=== PATIENT | male | born 1970 | race Caucasian/White ===

== ENCOUNTER 2019-11-16 23:26 | Inpatient (IN) | payer OTHER, SELFPAY ==
--- NOTE | ~2019-11-16 | XR_ITS ---
EXAMINATION: XR chest 1V portable DATE: 11/20/2019 05:45 INDICATION: Respiratory failure TECHNIQUE: frontal view of the chest was obtained. COMPARISON: Chest radiograph dated 11/19/2019 FINDINGS: Endotracheal tube tip 2.8 cm above the cari. Nasogastric tube extends below the left hemidiaphragm with distal tip collimated off the study. Increasing opacities with air bronchograms in the right lower lung zone and increasing retrocardiac c onsolidation at the left lower lung zone. No pleural effusion or pneumothorax. The cardiomediastinal silhouette is normal. IMPRESSION: 1. Slight increase in lung disease in the bilateral lower lung zones consistent with pneumonia or les s likely pulmonary edema and atelectasis. Reviewed, dictated and finalized at location A. IMPRESSION: 1. Slight increase in lung disease in the bilateral lower lung zones consistent with pneumonia or less likely pulmonary edema and atelectasis.
--- NOTE | ~2019-11-16 | XR_ITS ---
EXAMINATION: XR chest 1V portable INDICATION: Respiratory failure TECHNIQUE: Portable AP chest at 0507 hours COMPARISON: 11/21/2019 FINDINGS: The endotracheal and nasogastric tubes have been removed. Patchy bibasilar airspace opaciti es persist but have improved. There is no pleural effusion or pneumothorax. The cardiomediastinal becky houette is normal. IMPRESSION: 1. Persistent but improved bibasilar airspace opacities, consistent with resolving atelectasis versus pneumonia. 2. Endotracheal and nasogastric tube removal. Reviewed, dictated and finalized at location A. IMPRESSION: 1. Persistent but improved bibasilar airspace opacities, consistent with resolv ing atelectasis versus pneumonia. 2. Endotracheal and nasogastric tube removal.
--- NOTE | ~2019-11-16 | XR_ITS ---
EXAMINATION: XR chest ET placement, XR abdomen NG/feed tube insert DATE: 11/19/2019 00:18 INDICATION: Endotracheal tube and orogastric tube placement. TECHNIQUE: 1. A single frontal view of the chest was obtained. 2. Supine frontal view of the abdomen and pelvis was obtained. COMPARISON: none FINDINGS: chest: Endotracheal tube tip 3.2 cm above the cari. There are opacities in the bilateral lower lung zones . No pleural effusion or pneumothorax. The cardiomediastinal silhouette is normal. KUB: Orogastric tube tip in proximal side port in the body of the stomach. Multiple gas-filled but not fra nkly dilated loops of large and small bowel in a nonspecific bowel gas pattern. IMPRESSION: 1. Endotracheal tube and orogastric tubes in expected positions. 2. Opacities in the bilateral lower lung zones which could represent pneumonia or atelectasis. 3. Nonspecific bowel gas pattern. Reviewed, dictated and finalized at location A. IMPRESSION: 1. Endotracheal tube and orogastric tubes in expected positions. 2. Opacities in the bilateral lower lung zones which could represent pneumonia or atelectasis. 3. Nonspecific bowel gas pattern.
--- NOTE | ~2019-11-16 | US_ITS ---
US right upper quadrant DATE: 11/18/2019 10:12 INDICATION: Abnormal liver function tests TECHNIQUE: Real-time imaging of liver, pancreas, gallbladder areas COMPARISON: Real-time imaging of liver, pancreas, gallbladder areas FINDINGS: There is hepatic steatosis. No hepatic or pancreatic space-occupying mass lesion is detecte d. Normal hepatic portal venous flow direction. The common bile duct measures 2.8 mm, normal. The beltran creatic duct is mildly prominent, measuring 3.4 mm diameter. No gallstones, gallbladder wall thickening or abnormal pericholecystic fluid collection. Negative son ographic Stroud's sign. IMPRESSION: Nonspecific mild prominence of the pancreatic duct, measuring 3.4 mm. Consider MRCP or ER CP Hepatic steatosis Reviewed, dictated and finalized at Location A. Reviewed, dictated and finalized at location A. IMPRESSION: Nonspecific mild prominence of the pancreatic duct, measuring 3.4 m m. Consider MRCP or ERCP Hepatic steatosis
--- NOTE | ~2019-11-16 | XR_ITS ---
EXAMINATION: XR chest 1V portable DATE: 11/21/2019 05:43 INDICATION: Respiratory failure TECHNIQUE: frontal view of the chest was obtained. COMPARISON: Chest radiograph dated 11/20/2019 FINDINGS: Endotracheal tube tip 3.0 cm above the cari. Nasogastric tube extends below the left hemidiaphragm with distal tip collimated off the study. No interval change in opacities in the bilateral lower lung zones. No pleural effusion or pneumothora x. The cardiomediastinal silhouette is normal. IMPRESSION: 1. Unchanged opacities in the bilateral lower lung zones which could represent pneumonia and/or atele ctasis. Reviewed, dictated and finalized at location A. IMPRESSION: 1. Unchanged opacities in the bilateral lower lung zones which could represent pneumonia and/or atelectasis.
--- NOTE | ~2019-11-16 | XR_ITS ---
EXAMINATION: XR chest 1V portable DATE: 11/19/2019 06:05 INDICATION: Intubation TECHNIQUE: frontal view of the chest was obtained. COMPARISON: Chest radiograph dated 11/19/19 FINDINGS: Endotracheal tube tip 4.1 cm above the cari. Nasogastric tube tip in the body of the stomach. Focal consolidation with air bronchograms in the bilateral lower lung zones, left greater than right. No pleural effusion or pneumothorax. The cardiomediastinal silhouette is normal. IMPRESSION: 1. Lung disease in the bilateral lower lung zones or less likely pulmonary edema. Reviewed, dictated and finalized at location A. IMPRESSION: 1. Lung disease in the bilateral lower lung zones or less likely pulmonary angel a.
--- NOTE | ~2019-11-16 | CT_ITS ---
EXAMINATION: CT brain wo con DATE: 11/17/2019 01:34 INDICATION: Seizure. Transient alteration of awareness. Hypertension. TECHNIQUE: Computed tomography (CT) of the head was performed without intravenous contrast. The mA wa s adjusted according to patient size. Iterative reconstruction technique was employed. Exam dose: 60 5.33 mGy-cm total exam DLP. COMPARISON: None FINDINGS: No intracranial mass lesion or hemorrhage or evidence of cerebrovascular accident. No midli ne shift or mass effect. There is nonspecific diminished attenuation of the cerebral white matter, li anat due to chronic small vessel ischemic change. There is generalized volume loss of the cerebellum and cerebral hemispheres, greater than expected for age. No subdural or epidural hematoma. No fracture or bone destruction of the cranial vault. Included paranasal sinuses and mastoid air cell s are unremarkable. IMPRESSION: Generalized volume loss of the cerebrum and cerebellum for age Nonspecific diminished attenuation cerebral white matter, likely related to chronic small vessel isch emic changes No acute intracranial finding Reviewed, dictated and finalized at Location A. Reviewed, dictated and finalized at location A. IMPRESSION: Generalized volume loss of the cerebrum and cerebellum for age Nonspecific diminished attenuation cerebral white matter, likely related to chr onic small vessel ischemic changes No acute intracranial finding
--- NOTE | ~2019-11-16 | XR_ITS ---
EXAMINATION: XR abdomen/kub 1V DATE: 11/21/2019 09:58 INDICATION: Ileus TECHNIQUE: A supine view of the abdomen on 2 radiographs was obtained. COMPARISON: None. FINDINGS: Nasogastric tube tip in the proximal body of the stomach with small amount of gas in the distal stoma ch. Moderate amount of stool in the cecum and gas extending across the transverse colon. No dilated g as-filled loops of bowel to suggest obstruction. No suspicious calcifications in the abdomen or pelvi s. IMPRESSION: 1. Normal bowel gas pattern. Reviewed, dictated and finalized at location A.
[2019-11-16 23:26] VITALS: BP 174/116; PULSE 120; RESP 20; TEMP 36.2; O2SAT 95
--- NOTE | 2019-11-16 23:32 | PC.NURSE ---
Patient's girlfriend in room, states patient has been detoxing for a week. Girlfriend states, but he's been drinking the whole time.
--- NOTE | 2019-11-16 23:34 | PC.NURSE ---
Seizure pads placed on bed, MD notified of patient.
--- NOTE | 2019-11-16 23:42 | ECG_ITS ---
Measurements Intervals [place] Rate: 114 P: 28 MA: 185 QRS: 43 QRSD: 105 T: -15 QT: 321 QTc: 444 Interpretive Statements SINUS TACHYCARDIA DELAYED PRECORDIAL R/S TRANSITION INFERIOR INFARCT, AGE INDETERMINATE BASELINE WANDER- I, AVF ABNORMAL ECG Electronically Signed On 11-17-2019 7:15:03 CDT by Francisco Javier Hogue D.O.
--- NOTE | 2019-11-16 23:54 | PC.NURSE ---
Patient pulled out IV, new IV placed.
[2019-11-17] VITALS (15 sets, daily range): BP systolic 128–159; BP diastolic 77–116; PULSE 89–106; RESP 16–95; TEMP 36.5–37.2; O2SAT 28–99; BMI 28.3
[2019-11-17 00:22] LABS: Albumin Level 5.1 g/dL (3.5-5.1); Alkaline Phosphatase 260 U/L (38-126); Aspartate Amino Transferase 546 U/L (17-59); Blood Urea Nitrogen 12 mg/dL (9-20); Calcium 10.1 mg/dL (8.4-10.2); Carbon Dioxide 20 mmol/L (22-30); Chloride 95 mmol/L (98-107); Estimated CRCL calculation 131 ml/min; Estimated Glomerular Filt Rate > 60; Glucose 208 mg/dL (75-110); Lipase 262 U/L (23-300); Potassium 3.7 mmol/L (3.4-5.0); Sodium 135 mmol/L (137-145)
[2019-11-17 00:28] LABS: Alanine Aminotransferase 217 U/L (4-50)
[2019-11-17 00:31] LABS: Basophils Percent Auto 0.4 % (0.2-1.2); Hematocrit 46.6 % (42.0-52.0); Hemoglobin 15.9 g/dL (14.0-18.0); Immature Granulocyte Absolute 0.05 K/mm3 (0.00-0.031); Immature Granulocyte Percent A 1.1 % (0-0.5); Immature Platelet Fraction Pct 8.9 % (0.9-11.2); Lymphocytes Absolute Auto 0.26 K/mm3 (0.9-3.2); Lymphocytes Percent Auto 5.8 % (18.3-44.2); Mean Corpuscular HGB Conc 34.1 g/dl (32-36); Mean Corpuscular Hemoglobin 34.5 pg (26-34); Mean Corpuscular Volume 101.1 fl (80-100); Mean Platelet Volume 12.2 fl (7.4-10.4); Monocytes Absolute Auto 0.5 K/mm3 (0.1-0.6); Monocytes Percent Auto 11.3 % (2.6-8.5); Neutrophils Absolute Auto 3.7 K/mm3 (1.3-6.7); Neutrophils Percent Auto 81.4 % (45.5-73.1); Platelet Count Result 42 k/mm3 (150-375); Red Blood Count 4.61 M/mm3 (4.6-6.20); Red Cell Distribution Width 17.4 % (11.5-14.5); White Blood Count 4.5 K/mm3 (4.5-10.0)
[2019-11-17 00:31] LABS: Ethanol < 10 mg/dL (<10)
[2019-11-17 00:34] LABS: INR 1.1; Prothrombin Time 13.6 Seconds (11.1-14.7)
[2019-11-17 00:35] LABS: Partial Thromboplastin Time 36.1 SECONDS (22.3-36.8)
[2019-11-17 00:35] LABS: Add Urine Microscopic? YES; Amphetamine Screen Urine Negative (Negative); Appearance Urine Clear (Clear); Barbiturate Screen Urine Negative (Negative); Benzodiazepines Screen Urine Negative (Negative); Bilirubin Urine 1+ (Negative); Blood Urine 2+ (Negative); Cannabinoid Screen Urine Negative (Negative); Cocaine Screen Urine Negative (Negative); Color Urine Amber (Yellow); Glucose Urine UA 1+ mg/dL (Negative); Ketones Urine 2+ mg/dL (Negative); Leukocyte Esterase Ur Negative LEU/UL (Negative); Methadone Screen Urine Negative (Negative); Mucus Urine Rare /lpf; Nitrate Urine Negative (Negative); Opiate Screen Urine Negative (Negative); Phencyclidine Screen Urine Negative (Negative); Protein Urine 3+ mg/dL (Negative); Specific Grav Ur 1.025 (1.001-1.035); WBC Urine 0-3 /hpf
[2019-11-17 00:47] LABS: Platelet Estimate Decreased (Adequate); Stomatocytes 1+ (NORMAL)
[2019-11-17 00:48] LABS: Macrocytosis 1+ (NORMAL); Ovalocytes 1+ (NORMAL)
[2019-11-17] MEDS: LORAZEPAM INJ 2 MG/ML VIAL IV PUSH ×7 (01:25→23:17)
--- NOTE | 2019-11-17 01:26 | ED.GENADULT ---
HPI - General Adult General Chief complaint: Alcohol Stated complaint: HTN Time Seen by Provider: 11/16/19 23:47 Source: patient, EMS and other (girlfriend) Mode of arrival: EMS History of Present Illness HPI narrative: 49 yo male with h/o liver disease, alcoholism who presents for evaluation of possible alcohol withdrawal. Patient states that he has been trying to stop drinking alcohol because he binges. He reports he has not had any alcohol in 1 week but his significant other states patient has likely been drinking up until 48 hours ago. EMS was called because his roommate found him altered and staring. It is suspected that patient had a seizure. He reports history of alcohol withdrawal with shakiness but he has never suffered a seizure before. He has tongue bruising but denies urinary incontinence. He denies headache , dizziness, chest pain abdominal pain or weakness. He has some mild nausea. He also denies hallucinations. He states over 1 year ago he was told he had liver disease but he does not follow up for after care Related Data Allergies Allergy/AdvReac Type Severity Reaction Status Date / Time No Known Allergies Allergy Verified 11/17/19 01:23 Review of Systems Review of Systems: All systems reviewed & are unremarkable except as noted in HPI and below Constitutional: Constitutional: Denies chills and Denies fever(s) Eyes: Eyes: Denies change in vision ENT: Denies dizziness and Denies sore throat Cardiovascular: Cardiovascular: Denies chest pain and Denies rapid heart rate Respiratory: Respiratory: Denies cough and Denies dyspnea Gastrointestinal: Gastrointestinal: Denies abdominal pain, Denies diarrhea, Reports nausea and Denies vomiting Neurologic: Denies vertigo, Denies dizziness, Denies syncope, Denies focal weakness and Denies weakness PMF Past Medical History Medical History (Updated 11/17/19 @ 03:44 by Rose Sandoval MD) Alcoholism /alcohol abuse Liver disease due to alcohol Family History Family History (Updated 11/17/19 @ 06:05 by Ashley Olmstead RN) Mother Unknown family medical history Father Unknown family medical history Sibling Unknown family medical history Social History Social History (Updated 11/17/19 @ 01:41 by Rose Sandoval MD) Smoking packs per day: 1 Smoking cigarettes per day: 20.0 Years smoked: 27 Smoking pack-years: 27.00 Smoking status: Current every day smoker Tobacco type: cigarettes Alcohol intake: current Drinks per week: 4 Substance use: never Gender identity (if verbalized by the patient): Male Spiritual care concerns: No Agree to blood products: Yes Exam Const: General: alert and ill appearing Orientation/consciousness: patient oriented x3 HENMT: Head: normocephalic and atraumatic Ears: hearing grossly normal bilaterally and external ears normal Face and sinus: face symmetric Mouth: Yes other (bruising to right side of tongue) Teeth and gingiva: dentition normal Throat: posterior oropharynx normal and tonsils normal Eyes: Pupils: Equal, round and reactive pupils present EOM: EOMs intact bilaterally Other: scleral icteric Chest: Chest palpation & inspection: normal inspection of the chest Resp: Effort & Inspection: normal respiratory effort, no retractions and no use of accessory muscles Auscultation: clear to auscultation bilaterally Cardio: Rate: tachycardic Rhythm: regular rhythm Heart sounds: no murmurs Skin: General skin exam: normal color Rashes: no rashes Neuro: General: patient oriented x3, moves all extremities and no meningeal signs Motor exam (neuro): Tremors during motor activity present Psych: Appearance: disheveled Course Consultations Consultation #1: I Discussed case with Dr. Small who accepts patient IMU with q 4 hour 50 mg librium and ativan PRN Date: 11/17/19 Time: 03:40 Vital Signs Vital signs: Vital Signs Temperature 97.1 F L 11/16/19 23:26 Pulse Rate
[2019-11-17 02:18] LABS: Ammonia 39 umol/L (9-30)
[2019-11-17 02:22] LABS: INR 1.1
[2019-11-17 02:23] LABS: Partial Thromboplastin Time 36.2 SECONDS (22.3-36.8)
[2019-11-17 02:24] LABS: Ethanol < 10 mg/dL (<10)
[2019-11-17] MEDS: LORAZEPAM INJ 2 MG/ML VIAL 1 MG IV PUSH (03:47)
--- NOTE | 2019-11-17 05:34 | ADMGEN ---
This patient, Manny Morley, was admitted to IMU Room 205-01 FROM ER 11/17/19 0450. Patient/family oriented to hospital policies and general routines including ID bracelet, bed and alarms, visiting hours, pain management, procedures, bathroom and other care routines, personal items, smoking policy, room service/diet, and visiting hours. Valuables list has been completed. Information on how to activate the Rapid Response Team has been discussed. Patient/Family are encouraged to report perceived risks to care and to ask questions if they do not understand what they are told or what they should do.
[2019-11-17] MEDS: CHLORDIAZEPOXIDE 25 MG CAPSULE 50 MG PO ×4 (06:51→23:17)
--- NOTE | 2019-11-17 09:42 | PM.IMHP ---
H&P: HPI History of Present Illness Chief complaint: alcohol withdrawal, alcoholic seizure Narrative: Manny Morley is a 49 year old male who has experienced problems with alcohol abuse since his early 20s. He admits to a couple of DUIs during his 20s. A little over 1 year ago he was in inpatient and outpatient rehab at [facility] in [place], [place]. He was given a prescription for naltrexone but did not take it. He did well for several months but relapsed to his previous binge drinking pattern. He would drink 1 pt of hard liquor per day for 3-4 days in abstain for a couple of days until he got the shakes and then start drinking again. He has had withdrawal in the past with hallucinations. But he has never had seizures. He was in 1 of his binges until he stopped drinking about 4 days prior to admission. A significant other who accompanied him to the emergency department related to the doctor there that he might have been drinking up to 48 hours prior to admission. He was brought the emergency department because his roommate found him confused and staring. There was some bruising on his tongue but no other sign of injury and no incontinence of urine or stool. The presumption was that he might have had a seizure. In the emergency department he was given lorazepam and Librium. This morning he feels a bit shaky. However he is not nauseated nor is he confused. He denied pain in the chest, back, abdomen, or extremities. Denied shortness of breath. Denied bowel or bladder changes. Denied abnormal bleeding. Denied weakness numbness visual or hearing changes. Denied rash or itching. Review of Systems Review of Systems: Narrative: Intermittent random nausea while drinking. No heartburn. All systems reviewed & are unremarkable except as noted in HPI and below PMFSH Past Medical History Medical History Alcoholism /alcohol abuse Liver disease due to alcohol Surgical History Surgical History (Updated 11/17/19 @ 09:45 by Moises Keyes MD) S/P ACL repair Left knee in about 2014 Family History Family History (Updated 11/17/19 @ 09:46 by Moises Keyes MD) Mother Alcoholism Father Alcohol abuse Sibling Alcoholism Social History Social History (Updated 11/17/19 @ 09:48 by Moises Keyes MD) Smoking packs per day: 1 Smoking cigarettes per day: 20.0 Years smoked: 27 Smoking pack-years: 27.00 Smoking status: Current every day smoker Tobacco type: cigarettes Alcohol intake: current Drinks per week: 4 Alcohol use details: Binges one pint of hard liquor per day for 3-4 days at a time Substance use: never Living arrangements: with friend(s) Additional living arrangements comments: Lives with roommate Occupation/Education: occupation Additional occupation/education comments: manager equity Gender identity (if verbalized by the patient): Male Spiritual care concerns: No Agree to blood products: Yes Meds Home Medications and Allergies Allergies Allergy/AdvReac Type Severity Reaction Status Date / Time No Known Allergies Allergy Verified 11/17/19 01:23 Vital Signs Vital Signs - 24 hr 11/16/19 23:26 11/17/19 02:17 11/17/19 04:00 Temperature 97.1 F L 98.5 F Pulse Rate 120 H 89 93 Pulse Rate [Monitor] Respiratory Rate 20 95 H 16 Blood Pressure 174/116 H 156/116 H 149/89 H Pulse Oximetry 95 28 L 93 11/17/19 04:40 11/17/19 05:00 11/17/19 08:00 Temperature 98.8 F Pulse Rate 89 99 Pulse Rate [Monitor] 90 Respiratory Rate 18 18 Blood Pressure 134/94 H 149/89 H 148/91 H Pulse Oximetry 98 95 Exam Narrative: Exam Narrative: HEENT: EOMI, PERRL, sclerae nonicteric, pharyngeal mucosa pink and intact NECK: No JVD, adenopathy, or thyromegaly CHEST: Clear to auscultation. Normal effort. HEART: NL S1/S2, regular, no murmur ABDOMEN: BS+, soft, nontender, no mass, no bruits EXTREMITIES: No c
[2019-11-17] MEDS: LACTATED RINGERS 1,000 ML 125 ML IV CONT ×2 (13:03→20:00)
[2019-11-17] MEDS: hydrALAZINE HCL 20 MG/ML VIAL 10 MG IV PUSH (19:55)
[2019-11-18] VITALS (14 sets, daily range): BP systolic 101–168; BP diastolic 66–107; PULSE 67–148; RESP 14–35; TEMP 36.2–37.4; O2SAT 91–99
[2019-11-18] MEDS: NICOTINE (*PBKC) 21 MG PATCH 1 PATCH TRANSDERM ×2 (01:32→09:38)
[2019-11-18] MEDS: CHLORDIAZEPOXIDE 25 MG CAPSULE 100 MG PO ×4 (01:53→23:19)
[2019-11-18] MEDS: LORAZEPAM INJ 2 MG/ML VIAL 4 MG IV PUSH ×3 (01:54→22:19)
--- NOTE | 2019-11-18 02:45 | P.PNCROSS_ITS ---
Event Note Event Note Event Note: A code simón was called. I arrived at the bedside shortly thereafter. The patient was trying to climb out of bed. The patient had been admitted for alcohol withdrawal. He was already on Librium 50 mg q.6 hours. I had been called earlier in the evening because the patient's CIWA score was 18. Evidently the patient's CIWA score had been in the teens throughout most of course the day. I have given an order at that time for 4 mg of Ativan IV push and a 100 mg Librium order x1 now and to change his scheduled Librium to 100 mg Q 6. His Ativan was also changed to 2 mg Q 2 hours. However approximately an hour later the patient was quite agitated, hallucinating, diaphoretic, and markedly tremulous. I ordered 4 mg of Ativan IV push and Haldol 10 mg IM. The patient did not seem to settle down at all and may be even got a little bit worse. Another order for 6 mg of IV Ativan push and Zyprexa 10 mg IM. And shortly thereafter the patient was still agitated. Additional 6 mg of Ativan IV push was given as the patient was prepared for transfer to the ICU as his CIWA score was 36 despite large doses of Ativan and antipsychotics. I ordered a Precedex bolus and Precedex drip. Given the patient's hallucinations and altered mental status I was concern for the patient's risk of aspiration. The patient has subsequently been made NPO. Alcoholism with delirium tremens-the patient's case has been discussed with the breakfast attendant. Care has been turned over to the breakfast attendant at the end of my shift. 75 minutes was spent in critical care activities. This case had a high probability of a clinically significant, sudden, or life threatening deterioration of this patient's condition which required my full and direct attention, intervention and personal management.
[2019-11-18] MEDS: HALOPERIDOL LACTATE 5 MG/ML VIAL 10 MG IM (02:49)
[2019-11-18] MEDS: LORAZEPAM INJ 2 MG/ML VIAL 6 MG IV PUSH ×2 (02:51→23:53)
[2019-11-18] MEDS: OLANZapine 10 MG INJ VIAL IM (02:51)
[2019-11-18] MEDS: WATER, STERILE FOR INJECTION 10 ML VIAL XX (02:53)
--- NOTE | 2019-11-18 03:04 | PC.NURSE ---
PT. VERY AGITATED 0130 AND UNRULY, COMBATIVE. DR. RICHARDSON NOTIFIED OF PT WITHDRAWAL AND AGITATION. ORDERS RECEIVED. 0140 PT. FELL OUT OF BED DEBRA HERE. 0214 CODE PURPLE CALLED DUE TO SEVERE AGITATION. SEE NOTES AND EMAR FOR MEDS.. AT BEDSIDE.
--- NOTE | 2019-11-18 03:45 | PC.NURSE ---
This patient, Manny Morley, was transferred to ICU-10 on 11/18/19 at 0320. Personal belongings sent with patient. Belongings list checked and signed with receiving [ ]. Report given to HARSHIL CASTILLO [ ]. Appropriate documentation sent with patient.
--- NOTE | 2019-11-18 03:47 | PC.NURSE ---
MOTHER SONIA NOTIFIED OF FALL AND TRANSFER TO ICU DUE TO SEVERE WITHDRAWAL SX. AND NEED FOR CRITICAL CARE IV MEDICATION.
[2019-11-18] MEDS: SODIUM CHLORIDE 0.9% IV 1,000 ML 125 ML IV CONT ×3 (04:03→19:18)
[2019-11-18] MEDS: LORAZEPAM INJ 2 MG/ML VIAL 4 MG ×2 (07:55→14:02)
[2019-11-18] MEDS: HALOPERIDOL LACTATE 5 MG/ML VIAL (07:56)
[2019-11-18 09:16] LABS: Basophils Percent Auto 0.4 % (0.2-1.2); Eosinophils Absolute Auto 0.1 K/mm3 (0-0.3); Eosinophils Percent Auto 1.7 % (0-4.4); Hematocrit 39.3 % (42.0-52.0); Hemoglobin 13.4 g/dL (14.0-18.0); Immature Granulocyte Absolute 0.03 K/mm3 (0.00-0.031); Immature Granulocyte Percent A 0.6 % (0-0.5); Lymphocytes Absolute Auto 0.26 K/mm3 (0.9-3.2); Lymphocytes Percent Auto 5.5 % (18.3-44.2); Mean Corpuscular HGB Conc 34.1 g/dl (32-36); Mean Corpuscular Hemoglobin 35.1 pg (26-34); Mean Corpuscular Volume 102.9 fl (80-100); Mean Platelet Volume 12.1 fl (7.4-10.4); Monocytes Absolute Auto 0.3 K/mm3 (0.1-0.6); Monocytes Percent Auto 6.6 % (2.6-8.5); Neutrophils Percent Auto 85.2 % (45.5-73.1); Platelet Count Result 43 k/mm3 (150-375); Red Blood Count 3.82 M/mm3 (4.6-6.20); Red Cell Distribution Width 17.3 % (11.5-14.5); White Blood Count 4.7 K/mm3 (4.5-10.0)
[2019-11-18 09:24] LABS: Ammonia 23 umol/L (9-30)
[2019-11-18 09:29] LABS: Magnesium 1.9 mg/dL (1.6-2.3); Phosphorus 3.2 mg/dL (2.5-4.5)
[2019-11-18 09:30] LABS: Alanine Aminotransferase 198 U/L (4-50); Alkaline Phosphatase 178 U/L (38-126); Aspartate Amino Transferase 370 U/L (17-59); Bilirubin,Total 6.2 mg/dL (0.2-1.3); Blood Urea Nitrogen 9 mg/dL (9-20); Calcium 8.9 mg/dL (8.4-10.2); Carbon Dioxide 23 mmol/L (22-30); Chloride 103 mmol/L (98-107); Estimated CRCL calculation 150 ml/min; Estimated Glomerular Filt Rate > 60; Glucose 138 mg/dL (75-110); Potassium 3.3 mmol/L (3.4-5.0); Sodium 138 mmol/L (137-145)
[2019-11-18 09:37] LABS: Creatine Kinase 388 U/L (55-170)
[2019-11-18 10:24] LABS: Hepatitis B Surface Antigen Negative (Negative)
[2019-11-18 10:27] LABS: HAV RESULT Negative (Negative); Hepatitis B Core IgM Result Negative (Negative)
[2019-11-18 10:39] LABS: Hepatitis C Virus Antibody Negative (Negative)
--- NOTE | 2019-11-18 12:43 | WPDCNINT ---
Assessment and Plan Assessment and plan (1) Alcohol withdrawal syndrome: Qualifiers: Complication of substance-induced condition: with unspecified complication Qualified Code(s): F10.239 - Alcohol dependence with withdrawal, unspecified Code(s): F10.239 - Alcohol dependence with withdrawal, unspecified Status: Acute Assessment and Plan: Alcohol withdrawal, with possible seizures, tremors, delirium, agitation. - started on precedex - pt has received multiple doses of ativan, haldol and zyprexa. - continue thiamine, folic acid and MVI - Libriium - ativan PRN (2) Alcohol withdrawal seizure: Qualifiers: Complication of substance-induced condition: with unspecified complication Qualified Code(s): F10.239 - Alcohol dependence with withdrawal, unspecified; R56.9 - Unspecified convulsions Code(s): F10.239 - Alcohol dependence with withdrawal, unspecified; R56.9 - Unspecified convulsions Status: Acute Assessment and Plan: Ativan PRN and Preedex (3) Acute alcoholic hepatitis: Code(s): K70.10 - Alcoholic hepatitis without ascites Status: Acute (4) DVT prophylaxis: Code(s): Z29.9 - Encounter for prophylactic measures, unspecified Status: Acute Assessment and Plan: SCDs, No chemoprophylaxis due to thrombocytopenia (5) Thrombocytopenia: Code(s): D69.6 - Thrombocytopenia, unspecified Status: Acute Assessment and Plan: likely secondary ETOH abuse. continue to monitor (6) Elevated LFTs: Code(s): R79.89 - Other specified abnormal findings of blood chemistry Status: Acute Assessment and Plan: RUQ u/s 11/17: Nonspecific mild prominence of the pancreatic duct, measuring 3.4 mm. Consider MRCP or ERCP. Hepatic steatosis - Will have GI evaluate the pt Additional Plan WIll update his mother. Code Status: Full code Critical care time spent: 41 minutes Due to a high probability of clinically significant, life threatening deterioration, the patient required my highest level of preparedness to intervene emergently and I personally spent this critical care time directly and personally managing the patient. This critical care time included obtaining a history; examining the patient; pulse oximetry; ordering and review of studies; arranging urgent treatment with development of a management plan; evaluation of patient's response to treatment; frequent reassessment; and discussions with other providers. It was exclusive of separately billable procedures and treating other patients and teaching time. Please see Assessment and Plan section and the rest of the note for further information on patient assessment and treatment [employer] Liaison Adviser Consult Note Consult date: 11/18/19 Time Seen: 07:01 Reason for consult: Alcohol Withdrawal with delirium and agitation HPI: Manny Morley is a 49 year old male with PMH of Alcoholism/alcohol abuse and alcohol withdrawal, liver disease due to alcohol presented to the ED on 11/17/2019 with withdrawal seizures, hallucinations, tremors. Pt stopped drinking 48 hrs prior to arrival to the ED. Off note he has been in in patient and out patient rehab. He started binge drinking and stated to the hospitalistthat he drinks 1 pint of hard liquor per da for 3-4 days and then abstains for couple of days and when he gets his shakes her starts drinking agaihn, Pt wa son the IMU and was agitated and delirious and received a total of 16 mg of ativan along with zyprexa and haldol and the was transferred to ICU for Precedex infusion. Pt seen and examined in the ICU this morning. Pt was agitated and was climbing out of the bed and was given haldol and ativan and increased his precedex infusion. Pt settled down. Adequate uo, remains on maintenance IV fluids. Hemodynamically stable. Unable to anser any questions as pt is delirious. Review of Systems Review of Systems: ROS unobtainable: Yes unobtainable due to men
--- NOTE | 2019-11-18 17:54 | PM.IMPN ---
Progress Note: A&P Assessment and Plan (1) Alcohol withdrawal syndrome: Qualifiers: Complication of substance-induced condition: with unspecified complication Qualified Code(s): F10.239 - Alcohol dependence with withdrawal, unspecified Code(s): F10.239 - Alcohol dependence with withdrawal, unspecified Status: Acute Assessment and Plan: With confusion and possible seizure with postictal state No seizure altered mental status since admission Continue schedule Librium 50 mg every 6 hours Continue lorazepam 1 mg IV q.4 hours p.r.n. based on CIWA scale Continue thiamine and multivitamins Sedated and may need rehab type program later if he agrees to (2) Alcohol withdrawal seizure: Qualifiers: Complication of substance-induced condition: with unspecified complication Qualified Code(s): F10.239 - Alcohol dependence with withdrawal, unspecified; R56.9 - Unspecified convulsions Code(s): F10.239 - Alcohol dependence with withdrawal, unspecified; R56.9 - Unspecified convulsions Status: Acute Assessment and Plan: Seizure precautions Treat alcohol withdrawal as above now on Precedex also (3) Acute alcoholic hepatitis: Code(s): K70.10 - Alcoholic hepatitis without ascites Status: Acute Assessment and Plan: Screen for viral hepatitis is negative Ultrasound right upper quadrant normal Discussed abstaining from alcohol Subjective Date/time seen: 11/18/19 17:54 Interval history: Date of visit 11/17. 49-year-old high a holiday admitted with withdrawal her now in ICU with Precedex and benzodiazepine as as needed for agitation and DT symptoms Exam Narrative: Exam Narrative: Blood pressure 144/96 pulse 72 afebrile HEENT: , PERRL, sclerae nonicteric, NECK: No JVD, adenopathy, or thyromegaly CHEST: Clear to auscultation. Normal effort. HEART: NL S1/S2, regular, no murmur ABDOMEN: BS+, soft, nontender, no mass, no bruits EXTREMITIES: No , edema, NEUROLOGIC: CN intact and symmetric to inspection. No focal deficits detected but heavily sedated MUSCULOSKELETAL: . PSYCH: Heavily sedated unable to evaluate. Objective Data Vital Signs Vital Signs: Vital Signs - 24 hr 11/17/19 18:00 11/17/19 19:34 11/17/19 20:00 Temperature 36.5 C Pulse Rate 102 H 98 104 H Pulse Rate [Bilateral Pedal (Dorsalis Pedis)] Pulse Rate [Monitor] Respiratory Rate 20 Blood Pressure 159/103 H 159/103 H Pulse Oximetry 99 11/17/19 21:12 11/17/19 21:57 11/17/19 23:50 Temperature 37.0 C 37.2 C Pulse Rate 103 H 99 106 H Pulse Rate [Bilateral Pedal (Dorsalis Pedis)] Pulse Rate [Monitor] 106 H Respiratory Rate 18 18 Blood Pressure 128/77 136/96 H Pulse Oximetry 99 97 11/18/19 02:00 11/18/19 02:31 11/18/19 02:54 Temperature 36.2 C L Pulse Rate 130 H 120 H Pulse Rate [Bilateral Pedal (Dorsalis Pedis)] 148 H Pulse Rate [Monitor] Respiratory Rate 20 Blood Pressure 152/92 H Pulse Oximetry 97 11/18/19 04:00 11/18/19 06:00 11/18/19 08:00 Temperature 37.4 C 36.6 C 36.9 C Pulse Rate 122 H 79 83 Pulse Rate [Bilateral Pedal (Dorsalis Pedis)] 122 H Pulse Rate [Monitor] 122 H Respiratory Rate 20 33 H 28 H Blood Pressure 138/79 107/70 133/103 H Pulse Oximetry 99 98 98 11/18/19 09:46 11/18/19 10:00 11/18/19 12:00 Temperature 36.9 C Pulse Rate 73 76 Pulse Rate [Bilateral Pedal (Dorsalis Pedis)] Pulse Rate [Monitor] Respiratory Rate 14 28 H Blood Pressure 144/96 H 127/92 H Pulse Oximetry 96 98 93 11/18/19 14:00 11/18/19 16:00 Temperature 37.0 C Pulse Rate 68 71 Pulse Rate [Bilateral Pedal (Dorsalis Pedis)] Pulse Rate [Monitor] Respiratory Rate 18 35 H Blood Pressure 151/100 H 154/96 H Pulse Oximetry 91 95 Intake/Output Intake/Output: Intake & Output 11/15/19 11/16/19 11/17/19 11/18/19 23:59 23:59 23:59 23:59 Intake Total 2768.2 1289 Output Total 1025 1550 Balance 1743.2 -261
[2019-11-18] MEDS: LORAZEPAM INJ 2 MG/ML VIAL IV PUSH ×3 (19:17→23:20)
[2019-11-18] MEDS: HALOPERIDOL LACTATE 5 MG/ML VIAL IV PUSH (22:19)
[2019-11-19] VITALS (24 sets, daily range): BP systolic 135–164; BP diastolic 94–111; PULSE 64–88; RESP 12–97; TEMP 36.2–37.6; O2SAT 96–100; BMI 28.6
[2019-11-19] MEDS: PROPOFOL IV EMULSION 100 ML 3 MG IV CONT
--- NOTE | 2019-11-19 01:05 | P.PCNBED_ITS ---
Procedures Intubation: Intubation Date: 11/18/19 Intubation Time: 23:57 A pre- procedural Time-Out was completed immediately before starting the procedure and confirmed: Patient Identification, Site, Procedure, Patient Position and the Availability of Requisite Equipment: Yes Sedative: other (Diprivan) Mg given: 200 Laryngoscope: fiber optic video scope ET tube size: cuffed Tube secured depth (cm): 26 Tube secured location: lips Tube placement confirmation: visualized tube passing through cords, equal breath sounds bilaterally, no breath sounds over epigastrium and confirmation by capnometry Patient tolerated procedure: well Intubation complications: none Additional comments: The patient had a small amount of thick dried yellow to white mucus the posterior oropharynx with some dried brown material to his tongue. Otherwise intubation was unremarkable. The patient started to gag against the tube less than a minute after intubation. An additional 100 mg of Diprivan was administered. Chest x-ray was reviewed and ET tube as well as OG tube were in appropriate positions. Radiologic interpretation pending. When OG was placed there was a large amount of bilious material that returned.
--- NOTE | 2019-11-19 01:12 | PM.EVENT ---
Event Note Event Note Event Note: I was in the ICU evaluating another patient became aggressive and was kicking and nursing staff. The patient was already maxed out on Precedex and had received numerous doses of Ativan. He had also received IV Haldol. The patient was insensible but still agitated and shaking violently. The patient was becoming a risk to himself and to staff. Subsequently I decide intubate the patient. The patient underwent RSI without complications. He received 200 mg IV push propofol but had have an additional 100 mg immediately following intubation as he was coughing and gagging is the tube. Sedation was continued with Precedex and a propofol infusion was hung. Tidal volume of 500, peep of 5, rate of 12, FiO2 of 40%. Chest x-ray and KUB were performed to an ensure appropriate placement of ET tube and OG tube placement. Check stat x-ray and KUB were personally reviewed. Radiologic interpretation pending. The patient was rapidly maxed out on propofol. But shortly after he was maxed on a propofol the patient sedation was adequate. I did provide an order for fentanyl if needed. However at this time the patient is tolerating sedation well with propofol and and Precedex. Diagnosis: Delirium tremens 25 minutes was spent in critical care activities excluding procedures.
[2019-11-19 01:17] LABS: Alveolar/Arterial O2 Gradient 265.4 mmHg; Base Excess ABG -1.2 mEq/l (+/-2.0); Fractional Inspired Oxygen 50 %; HCO3 ABG 22.3 mEq/l (22.0-26.0); Methemoglobin ABG 0.5 %THb (0-1.5); Oxygen Content ABG 17.5 %vol (16.0-22.0); PCO2 ABG 33.7 mmHg (35.0-45.0); PO2 ABG 53.2 mmHg (80.0-100.0); PO2 FiO2 Ratio Arterial Blood 1.06 %; Reduced Hemoglobin 12.5 %THb (0-5.0); Total Hemoglobin 14.5 g/dL (12.0-18.0); pH ABG 7.438 (7.350-7.450)
[2019-11-19 01:18] LABS: Arterial Blood Gas Vent Mode CMV; Arterial Blood Gas Ventilator rate 12 /MIN; Device VENTILATOR; Modified Allen's Test Pass; Site Drawn LEFT RADIAL
[2019-11-19 01:19] LABS: Arterial Blood Gas PEEP 5 cmH2O; Arterial Blood Gas Pressure Support 0 cmH2O; Arterial Blood Gas Tidal Volume 500 ml
[2019-11-19] MEDS: PROPOFOL IV EMULSION 100 ML 30.3 MG IV CONT ×6 (02:33→23:07)
[2019-11-19] MEDS: SODIUM CHLORIDE 0.9% IV 1,000 ML 125 ML IV CONT ×2 (03:27→11:46)
[2019-11-19 04:53] LABS: Alveolar/Arterial O2 Gradient 223.2 mmHg; Base Excess ABG -0.5 mEq/l (+/-2.0); Carboxyhemoglobin 0.8 % THb (0-2.0); Device VENTILATOR; Fractional Inspired Oxygen 50 %; HCO3 ABG 23.6 mEq/l (22.0-26.0); Methemoglobin ABG 0.5 %THb (0-1.5); Modified Allen's Test Pass; Oxygen Content ABG 19.2 %vol (16.0-22.0); Oxygen Saturation ABG 97.2 % (95.0-100.0); Oxyhemoglobin 95.8 % THb (90.0-100.0); PO2 ABG 91.7 mmHg (80.0-100.0); PO2 FiO2 Ratio Arterial Blood 1.83 %; Reduced Hemoglobin 2.9 %THb (0-5.0); Site Drawn RIGHT RADIAL; Total Hemoglobin 14.2 g/dL (12.0-18.0); pH ABG 7.422 (7.350-7.450)
[2019-11-19 04:54] LABS: Arterial Blood Gas PEEP 5 cmH2O; Arterial Blood Gas Pressure Support 0 cmH2O; Arterial Blood Gas Tidal Volume 500 ml; Arterial Blood Gas Vent Mode CMV; Arterial Blood Gas Ventilator rate 12 /MIN
--- NOTE | 2019-11-19 07:45 | WPDINTPN ---
Progress Note: A&P Assessment and Plan (1) Acute respiratory failure: Code(s): J96.00 - Acute respiratory failure, unspecified whether with hypoxia or hypercapnia Status: Acute Assessment and Plan: Acute Respiratory failure secondary to delirium tremens and encephalopathy Continue full mechanical ventilation support to prevent hypoxemia/hypercarbia and end organ damage. ABG and PCXR reviewed and will repeat in am. concerns of aspiration pneumonia from chest x-ray and report of bilious section from ET tube after intubation check blood culture and sputum culture start empiric Zosyn Bronchodilators p.r.n. (2) Alcohol withdrawal syndrome: Qualifiers: Complication of substance-induced condition: with unspecified complication Qualified Code(s): F10.239 - Alcohol dependence with withdrawal, unspecified Code(s): F10.239 - Alcohol dependence with withdrawal, unspecified Status: Acute Assessment and Plan: Alcohol withdrawal, with possible seizures, tremors, delirium, agitation. - patient now sedated with propofol, precedex and fentanyl - prior to that patient received multiple doses of ativan, haldol and zyprexa. - continue thiamine, folic acid and MVI - Libriium (3) Alcohol withdrawal seizure: Qualifiers: Complication of substance-induced condition: with unspecified complication Qualified Code(s): F10.239 - Alcohol dependence with withdrawal, unspecified; R56.9 - Unspecified convulsions Code(s): F10.239 - Alcohol dependence with withdrawal, unspecified; R56.9 - Unspecified convulsions Status: Acute Assessment and Plan: at this time patient is sedated with propofol Ativan PRN when extubated (4) Acute alcoholic hepatitis: Code(s): K70.10 - Alcoholic hepatitis without ascites Status: Acute Assessment and Plan: monitor LFTs ammonia was normal lipase was normal (5) DVT prophylaxis: Code(s): Z29.9 - Encounter for prophylactic measures, unspecified Status: Acute Assessment and Plan: SCDs, No chemoprophylaxis due to thrombocytopenia (6) Thrombocytopenia: Code(s): D69.6 - Thrombocytopenia, unspecified Status: Acute Assessment and Plan: likely secondary ETOH abuse. continue to monitor improving slowly (7) Elevated LFTs: Code(s): R79.89 - Other specified abnormal findings of blood chemistry Status: Acute Assessment and Plan: RUQ u/s 4/21: Nonspecific mild prominence of the pancreatic duct, measuring 3.4 mm. Hepatic steatosis GI consulted Additional Plan DVT prophylaxis - SCDs Stress ulcer prophylaxis - add PPI Nutrition - start Tube Feeds today Code Status - Full Code Critical care time spent: 35 minutes Due to a high probability of clinically significant, life threatening deterioration, the patient required my highest level of preparedness to intervene emergently and I personally spent this critical care time directly and personally managing the patient. This critical care time included obtaining a history; examining the patient; pulse oximetry; ordering and review of studies; arranging urgent treatment with development of a management plan; evaluation of patient's response to treatment; frequent reassessment; and discussions with other providers. It was exclusive of separately billable procedures and treating other patients and teaching time. Please see Assessment and Plan section and the rest of the note for further information on patient assessment and treatment Subjective Date/time seen: 11/19/19 0745 Overnight events reviewed. Patient was intubated overnight and sedated. patient was being treated for delirium tremens and was on high dose of Precedex and was still combative aggressive and kicking. Nursing staff. Patient was restrained but was not controlled hence patient was sedated and intubated. Afebrile Vitals acceptable Interval history:
--- NOTE | 2019-11-19 07:46 | WPDGICN ---
Assessment and Plan Assessment and plan (1) Elevated LFTs: Code(s): R79.89 - Other specified abnormal findings of blood chemistry Status: Acute Assessment and Plan: Elevated LFTs most consistent with alcoholic liver disease especially with AST so much elevated compared ALT. Thrombocytopenia noted also suggested significant alcoholic liver disease. Plan is for for supportive care at the present time. LFTs should be monitored. Ultimately long-term alcohol suggested. (2) Alcohol withdrawal syndrome: Qualifiers: Complication of substance-induced condition: with unspecified complication Qualified Code(s): F10.239 - Alcohol dependence with withdrawal, unspecified Code(s): F10.239 - Alcohol dependence with withdrawal, unspecified Status: Acute Assessment and Plan: Patient with extreme agitation last evening. Appeared to have experienced DTs. Now sedated rate and required intubation. Management per medicaid business analyst service. (3) Acute alcoholic hepatitis: Code(s): K70.10 - Alcoholic hepatitis without ascites Status: Acute Assessment and Plan: Elevated LFTs likely on the basis of acute alcoholic hepatitis is uncertain if he has some component of cirrhosis. This cannot be excluded. CT scan suggest fatty liver undoubtedly on the basis of alcohol. Dilated pancreatic duct is likely nonspecific. At a later date we may want to consider MRCP to evaluate further. I would not pursue this at the present time. GI Consult Note Consult date/time: 11/19/19 07:46 HPI: Manny Morley is a 49 year old male seen in evaluation at the request of the medicaid business analyst service. Patient admitted the hospital 2 days ago with signs of alcohol withdrawal. Possible alcoholic seizure. Patient has a long history of alcohol abuse for 20 years. Typically drinks a pt of hard liquor every 3-4 days. Patient was admitted to the intensive care unit. Because of delirium tremens and extreme agitation he was given sedation and ultimately intubated last night. Currently unable to give any additional history. CT scan of the abdomen raise the question of prominence of the pancreatic duct. His liver tests are noted to be somewhat elevated. Review of Systems Review of Systems: ROS unobtainable: Yes unobtainable due to endotracheal tube PMFSH Past Medical History Medical History Alcoholism /alcohol abuse Liver disease due to alcohol Surgical History Surgical History S/P ACL repair Left knee in about 2014 Family History Family History Mother Alcoholism Father Alcohol abuse Sibling Alcoholism Social History Social History Smoking packs per day: 1 Smoking cigarettes per day: 20.0 Years smoked: 27 Smoking pack-years: 27.00 Smoking status: Current every day smoker Tobacco type: cigarettes Alcohol intake: current Drinks per week: 4 Alcohol use details: Binges one pint of hard liquor per day for 3-4 days at a time Substance use: never Living arrangements: with friend(s) Additional living arrangements comments: Lives with roommate Occupation/Education: occupation Additional occupation/education comments: solution manager Gender identity (if verbalized by the patient): Male Spiritual care concerns: No Agree to blood products: Yes Meds Home Medications and Allergies Home Medications Medication Instructions Recorded Confirmed Type No Home Medications 11/18/19 11/18/19 History Allergies Allergy/AdvReac Type Severity Reaction Status Date / Time No Known Allergies Allergy Verified 11/17/19 01:23 Vital Signs Vital Signs - 24 hr 11/18/19 08:00 11/18/19 09:46 11/18/19 10:00 Temperature 36.9 C Pulse Rate 83 73 Pulse Ra
[2019-11-19 08:39] LABS: Basophils Percent Auto 0.6 % (0.2-1.2); Eosinophils Absolute Auto 0.1 K/mm3 (0-0.3); Eosinophils Percent Auto 1.7 % (0-4.4); Hematocrit 41.5 % (42.0-52.0); Immature Granulocyte Absolute 0.04 K/mm3 (0.00-0.031); Immature Granulocyte Percent A 0.6 % (0-0.5); Immature Platelet Fraction Pct 11.4 % (0.9-11.2); Lymphocytes Absolute Auto 0.49 K/mm3 (0.9-3.2); Lymphocytes Percent Auto 6.9 % (18.3-44.2); Mean Corpuscular HGB Conc 33.7 g/dl (32-36); Mean Corpuscular Hemoglobin 35.1 pg (26-34); Mean Platelet Volume 11.6 fl (7.4-10.4); Monocytes Absolute Auto 0.7 K/mm3 (0.1-0.6); Monocytes Percent Auto 9.6 % (2.6-8.5); Neutrophils Absolute Auto 5.7 K/mm3 (1.3-6.7); Neutrophils Percent Auto 80.6 % (45.5-73.1); Platelet Count Result 54 k/mm3 (150-375); Red Blood Count 3.99 M/mm3 (4.6-6.20); Red Cell Distribution Width 17.4 % (11.5-14.5); White Blood Count 7.1 K/mm3 (4.5-10.0)
[2019-11-19 08:51] LABS: Alanine Aminotransferase 208 U/L (4-50); Albumin Level 3.8 g/dL (3.5-5.1); Alkaline Phosphatase 172 U/L (38-126); Aspartate Amino Transferase 365 U/L (17-59); Bilirubin,Total 6.6 mg/dL (0.2-1.3); Blood Urea Nitrogen 7 mg/dL (9-20); Calcium 8.7 mg/dL (8.4-10.2); Carbon Dioxide 22 mmol/L (22-30); Chloride 106 mmol/L (98-107); Estimated CRCL calculation 150 ml/min; Estimated Glomerular Filt Rate > 60; Glucose 139 mg/dL (75-110); Magnesium 1.7 mg/dL (1.6-2.3); Phosphorus 3.4 mg/dL (2.5-4.5); Sodium 137 mmol/L (137-145)
[2019-11-19] MEDS: THIAMINE HCL 100 MG TABLET PO (08:54)
[2019-11-19] MEDS: THERAPEUTIC MULTIVITAMINS/MINERALS TAB (*BKC) 1 TABLET PO (08:54)
[2019-11-19] MEDS: FOLIC ACID 1 MG TABLET PO (08:54)
[2019-11-19] MEDS: NICOTINE (*PBKC) 21 MG PATCH 1 PATCH TRANSDERM (08:54)
[2019-11-19] MEDS: PROPOFOL IV EMULSION 100 ML 12.1 MG IV CONT (09:44)
[2019-11-19] MEDS: PROPOFOL IV EMULSION 100 ML 18.2 MG IV CONT (10:48)
[2019-11-19] MEDS: CHLORDIAZEPOXIDE 25 MG CAPSULE 100 MG PO ×3 (11:08→23:35)
[2019-11-19 11:57] LABS: Glucose Point of Care 127 (65-105)
--- NOTE | 2019-11-19 13:46 | PC.NURSE ---
Pt had episode of shaking arms, eyes open and eyeballs rode back in his head, aKla Marie notified and at bed side, stated it looked to rhythmic to be seizure activity, lasted approximately 3 and a half minutes, will continue to monitor
[2019-11-19] MEDS: POTASSIUM CHLORIDE 20 MEQ PACKET (FOR LIQUID) 40 MEQ PO ×2 (14:57→19:58)
--- NOTE | 2019-11-19 16:08 | PM.IMPN ---
Progress Note: A&P Assessment and Plan (1) Alcohol withdrawal syndrome: Qualifiers: Complication of substance-induced condition: with unspecified complication Qualified Code(s): F10.239 - Alcohol dependence with withdrawal, unspecified Code(s): F10.239 - Alcohol dependence with withdrawal, unspecified Status: Acute Assessment and Plan: With confusion and possible seizure with postictal state and continue downhill course was intubated and mechanically ventilated No seizure altered mental status since admission Continue lorazepam 1 mg IV q.4 hours p.r.n. based on CIWA scale Continue thiamine and multivitamins (2) Alcohol withdrawal seizure: Qualifiers: Complication of substance-induced condition: with unspecified complication Qualified Code(s): F10.239 - Alcohol dependence with withdrawal, unspecified; R56.9 - Unspecified convulsions Code(s): F10.239 - Alcohol dependence with withdrawal, unspecified; R56.9 - Unspecified convulsions Status: Acute Assessment and Plan: Seizure precautions Treat alcohol withdrawal as above now on Precedex also (3) Acute alcoholic hepatitis: Code(s): K70.10 - Alcoholic hepatitis without ascites Status: Acute Assessment and Plan: Serology for viral hepatitis negative Ultrasound right upper quadrant normal abstaining from alcohol (4) Thrombocytopenia: Code(s): D69.6 - Thrombocytopenia, unspecified Status: Acute Assessment and Plan: Thought secondary to alcoholic liver disease also, continue to follow (5) Acute respiratory failure: Code(s): J96.00 - Acute respiratory failure, unspecified whether with hypoxia or hypercapnia Status: Acute Assessment and Plan: More short of breath last evening with agitation had to be intubated and mechanically ventilated.. Question whether maybe some degree of aspiration so Zosyn was added Subjective Date/time seen: 11/19/19 16:08 Interval history: Date of visit 11/18. 49-year-old alcoholic admitted with withdrawal now in ICU with Precedex and further sedation as as needed for agitation and DT symptoms.44 became more agitated and respiratory distress last evening had to be intubated and mechanically ventilated Exam Narrative: Exam Narrative: Blood pressure 134/94 pulse 72 afebrile HEENT: , PERRL, sclerae nonicteric, NECK: No JVD, adenopathy, or thyromegaly CHEST: Clear to auscultation. Normal effort. HEART: NL S1/S2, regular, no murmur ABDOMEN: BS+, soft, nontender, no mass, no bruits EXTREMITIES: No , edema, NEUROLOGIC: sedated MUSCULOSKELETAL: . PSYCH: sedated unable to evaluate. Objective Data Vital Signs Vital Signs: Vital Signs - 24 hr 11/18/19 18:00 11/18/19 19:52 11/18/19 21:48 Temperature 36.8 C Pulse Rate 72 72 88 Pulse Rate [Monitor] 72 Respiratory Rate 26 H 28 H 28 H Blood Pressure 168/103 H 159/98 H 163/107 H Pulse Oximetry 96 97 97 11/19/19 00:10 11/19/19 00:30 11/19/19 01:50 Temperature 36.8 C Pulse Rate 75 88 88 Pulse Rate [Monitor] 72 Respiratory Rate 16 Blood Pressure 164/111 H Pulse Oximetry 100 98 99 11/19/19 02:00 11/19/19 04:00 11/19/19 04:37 Temperature 36.9 C Pulse Rate 88 85 85 Pulse Rate [Monitor] 86 Respiratory Rate 97 H Blood Pressure 144/98 H 141/98 H Pulse Oximetry 99 97 97 11/19/19 06:00 11/19/19 08:00 11/19/19 08:11 Temperature 37.6 C Pulse Rate 82 79 78 Pulse Rate [Monitor] Respiratory Rate 16 17 Blood Pressure 137/97 H 142/97 H Pulse Oximetry 97 97 96 11/19/19 10:00 11/19/19 11:40 11/19/19 12:00 Temperature 37.2 C Pulse Rate 74 70 69 Pulse Rate [Monitor] Respiratory Rate 14 13 Blood Pressure 135/94 H 139/95 H Pulse Oximetry 98 98 96 11/19/19 14:00 Temperature Pulse Rate 65 Pulse Rate [Monitor] Respiratory Rate 12 Blood Pressure 149/99 H Pulse Oximetry 98 Intake/Output Intake/Output: Intake & Outpu
[2019-11-19 18:00] LABS: Glucose Point of Care 137 (65-105)
[2019-11-19 23:32] LABS: Glucose Point of Care 126 (65-105)
[2019-11-20] VITALS (22 sets, daily range): BP systolic 135–168; BP diastolic 91–112; PULSE 57–74; RESP 12–16; TEMP 37.2–38.4; O2SAT 95–100
[2019-11-20] MEDS: PROPOFOL IV EMULSION 100 ML 30.3 MG IV CONT ×3 (02:23→13:04)
[2019-11-20 04:39] LABS: Hematocrit 40.9 % (42.0-52.0); Hemoglobin 13.6 g/dL (14.0-18.0); Immature Platelet Fraction Pct 9.9 % (0.9-11.2); Mean Corpuscular HGB Conc 33.3 g/dl (32-36); Mean Corpuscular Hemoglobin 34.9 pg (26-34); Mean Corpuscular Volume 104.9 fl (80-100); Mean Platelet Volume 11.7 fl (7.4-10.4); Platelet Count Result 74 k/mm3 (150-375); Red Cell Distribution Width 17.4 % (11.5-14.5); White Blood Count 5.9 K/mm3 (4.5-10.0)
[2019-11-20 04:52] LABS: Alanine Aminotransferase 212 U/L (4-50); Albumin Level 3.6 g/dL (3.5-5.1); Alkaline Phosphatase 170 U/L (38-126); Aspartate Amino Transferase 352 U/L (17-59); Bilirubin,Total 5.4 mg/dL (0.2-1.3); Blood Urea Nitrogen 5 mg/dL (9-20); Calcium 8.8 mg/dL (8.4-10.2); Carbon Dioxide 25 mmol/L (22-30); Chloride 106 mmol/L (98-107); Estimated CRCL calculation 150 ml/min; Estimated Glomerular Filt Rate > 60; Glucose 137 mg/dL (75-110); Magnesium 1.9 mg/dL (1.6-2.3); Potassium 3.5 mmol/L (3.4-5.0); Sodium 138 mmol/L (137-145)
[2019-11-20 04:56] LABS: Alveolar/Arterial O2 Gradient 90.6 mmHg; Base Excess ABG 0.8 mEq/l (+/-2.0); Carboxyhemoglobin 0.4 % THb (0-2.0); Fractional Inspired Oxygen 30 %; HCO3 ABG 25.5 mEq/l (22.0-26.0); Methemoglobin ABG 0.4 %THb (0-1.5); Oxygen Content ABG 19.1 %vol (16.0-22.0); Oxygen Saturation ABG 95.2 % (95.0-100.0); Oxyhemoglobin 94.2 % THb (90.0-100.0); PCO2 ABG 41.1 mmHg (35.0-45.0); Total Hemoglobin 14.4 g/dL (12.0-18.0); pH ABG 7.411 (7.350-7.450)
[2019-11-20 04:57] LABS: Arterial Blood Gas PEEP 5 cmH2O; Arterial Blood Gas Tidal Volume 500 ml; Arterial Blood Gas Vent Mode CMV; Arterial Blood Gas Ventilator rate 12 /MIN; Device VENTILATOR; Modified Allen's Test Unable to perform; Site Drawn RIGHT RADIAL
[2019-11-20] MEDS: CHLORDIAZEPOXIDE 25 MG CAPSULE 100 MG PO ×4 (05:04→23:31)
--- NOTE | 2019-11-20 07:20 | WPDINTPN ---
Progress Note: A&P Assessment and Plan (1) Acute respiratory failure: Code(s): J96.00 - Acute respiratory failure, unspecified whether with hypoxia or hypercapnia Status: Acute Assessment and Plan: Acute Respiratory failure secondary to delirium tremens and encephalopathy Continue full mechanical ventilation support to prevent hypoxemia/hypercarbia and end organ damage. ABG and PCXR reviewed and will repeat in am. concerns of aspiration pneumonia from chest x-ray and report of bilious section from ET tube after intubation pending blood culture and sputum culture continue empiric Zosyn Bronchodilators p.r.n. ventilator weaning will depend on mental status. will perform sedation holiday today (2) Alcohol withdrawal syndrome: Qualifiers: Complication of substance-induced condition: with unspecified complication Qualified Code(s): F10.239 - Alcohol dependence with withdrawal, unspecified Code(s): F10.239 - Alcohol dependence with withdrawal, unspecified Status: Acute Assessment and Plan: Alcohol withdrawal, with possible seizures, tremors, delirium, agitation. - patient now sedated with propofol, precedex and fentanyl - prior to that patient received multiple doses of ativan, haldol and zyprexa. - continue thiamine, folic acid and MVI - Libriium - sedation holiday today (3) Alcohol withdrawal seizure: Qualifiers: Complication of substance-induced condition: with unspecified complication Qualified Code(s): F10.239 - Alcohol dependence with withdrawal, unspecified; R56.9 - Unspecified convulsions Code(s): F10.239 - Alcohol dependence with withdrawal, unspecified; R56.9 - Unspecified convulsions Status: Acute Assessment and Plan: at this time patient is sedated with propofol Ativan PRN when extubated - sedation holiday today - will get EEG if patient shows any other signs of seizures (4) Acute alcoholic hepatitis: Code(s): K70.10 - Alcoholic hepatitis without ascites Status: Acute Assessment and Plan: monitor LFTs. slowly improving ammonia was normal lipase was normal GI is following. recommend MRCP when patient is stable and extubated RUQ u/s 11/17: Nonspecific mild prominence of the pancreatic duct, measuring 3.4 mm. Hepatic steatosis (5) DVT prophylaxis: Code(s): Z29.9 - Encounter for prophylactic measures, unspecified Status: Acute Assessment and Plan: SCDs, No chemoprophylaxis due to thrombocytopenia (6) Thrombocytopenia: Code(s): D69.6 - Thrombocytopenia, unspecified Status: Acute Assessment and Plan: likely secondary ETOH abuse. continue to monitor improving slowly (7) Elevated LFTs: Code(s): R79.89 - Other specified abnormal findings of blood chemistry Status: Acute Assessment and Plan: see above Additional Plan DVT prophylaxis - SCDs Stress ulcer prophylaxis - PPI Nutrition - continue Tube Feeds Code Status - Full Code I spoke to patient's mother Evelia flynn by phone yesterday and explained in detail patient's condition including need for sedation and mechanical ventilation. Patient's mother feels that he needs inpatient psychiatric treatment for his alcohol abuse and she suspect patient may have undiagnosed depression or bipolar mood disorder. Critical care time spent: 33 minutes Due to a high probability of clinically significant, life threatening deterioration, the patient required my highest level of preparedness to intervene emergently and I personally spent this critical care time directly and personally managing the patient. This critical care time included obtaining a history; examining the patient; pulse oximetry; ordering and review of studies; arranging urgent treatment with development of a management plan; evaluation of patient's response to treatment; frequent reassessment; and discussions with other provide
--- NOTE | 2019-11-20 08:05 | WPDGIPROGNO ---
Progress Note: A&P Additional Plan Patient remains sedated on the ventilator. HEENT exam reveals some scleral icterus. Lungs appear clear. Heart without murmur. Abdomen is soft nontender with no organomegaly. Labs reveal total bilirubin 5.4, AST 352, ALT 212. Alk-phos 170. Labs reveal WBC 5.9, hemoglobin 13, hematocrit 40, MCV 104, platelets 74 K. Impression alcohol withdrawal syndrome. He may have had DTs. Now sedated on the ventilator. 2. Alcoholic hepatitis. He may have a component of underlying cirrhosis given his low platelet count and elevated MCV. 3. Abnormal CT scan. Hepatic steatosis noted likely from alcohol abuse. Dilated pancreatic duct likely physiologic. Consider an MRCP later when he is more stable. Continue to monitor LFTs. At this juncture. Subjective Date/time seen: 11/20/19 08:05 Objective Data Vital Signs Vital Signs: Vital Signs - 24 hr 11/19/19 08:11 11/19/19 10:00 11/19/19 11:40 Temperature Pulse Rate 78 74 70 Pulse Rate [Monitor] Respiratory Rate 14 Blood Pressure 135/94 H Pulse Oximetry 96 98 98 11/19/19 12:00 11/19/19 14:00 11/19/19 14:37 Temperature 37.2 C Pulse Rate 69 65 65 Pulse Rate [Monitor] Respiratory Rate 13 12 Blood Pressure 139/95 H 149/99 H Pulse Oximetry 96 98 98 11/19/19 16:00 11/19/19 17:48 11/19/19 18:00 Temperature 37.3 C Pulse Rate 65 72 66 Pulse Rate [Monitor] Respiratory Rate 12 12 Blood Pressure 147/98 H 149/98 H Pulse Oximetry 98 98 97 11/19/19 19:30 11/19/19 19:55 11/19/19 20:00 Temperature 36.2 C L Pulse Rate 68 64 68 Pulse Rate [Monitor] 86 Respiratory Rate 13 Blood Pressure 152/101 H Pulse Oximetry 98 98 97 11/19/19 22:00 11/19/19 22:52 11/19/19 23:15 Temperature Pulse Rate 66 65 68 Pulse Rate [Monitor] Respiratory Rate 12 Blood Pressure 147/99 H Pulse Oximetry 97 97 96 11/20/19 00:00 11/20/19 01:38 11/20/19 01:58 Temperature 37.6 C Pulse Rate 67 65 68 Pulse Rate [Monitor] 67 Respiratory Rate 12 13 Blood Pressure 146/100 H 146/100 H Pulse Oximetry 96 96 95 11/20/19 04:00 11/20/19 04:45 11/20/19 06:00 Temperature 38.1 C H Pulse Rate 67 63 68 Pulse Rate [Monitor] 69 Respiratory Rate 12 12 Blood Pressure 155/108 H 155/104 H Pulse Oximetry 97 96 97 Intake/Output Intake/Output: Intake & Output 11/17/19 11/18/19 11/19/19 11/20/19 23:59 23:59 23:59 23:59 Intake Total 2768.2 2489 3890 1026 Output Total 1025 1550 2700 1300 Balance 1743.2 189 3893 -274 Meds/Results Medications: Active Medications Generic Name Dose Route Start Last Admin Trade Name Freq PRN Reason Stop Dose Admin Chlordiazepoxide HCl 100 mg 11/18/19 06:00 11/20/19 05:04 Librium Po PO 100 mg Q6HR IRAM Administration Dextrose 12.5 gm 11/19/19 10:58 Dextrose 50% Syringe IV PUSH PRN PRN Hypoglycemia Protocol Folic Acid 1 mg 11/18/19 09:00 11/19/19 08:54 Folic Acid PO 1 mg DAILY IRAM Administration Glucagon 1 mg 11/19/19 10:58 Glucagon For Inj IM PRN PRN Hypoglycemia Protocol Glucose 15 gm 11/19/19 10:58 Glutose 15 PO PRN PRN Hypoglycemia Protocol Hydralazine HCl 10 mg 11/17/19 18:57 11/17/19 19:55 Apresoline Hcl Inj IV PUSH 10 mg Q8H PRN Administration Blood Pressure - High Dexmedetomidine HCl 200 mcg in 50 mls @ 37.5 mls/hr 11/18/19 12:10 11/20/19 06:45 Precedex 200 Mcg/50 Ml IV CONT 1.5 mcg/kg/hr .Q1H20M IRAM 37.5 mls/hr Administration Protocol Propofol 100 mls @ 30.33 mls/hr 11/18/19 23:50 11/20/19 05:37 Diprivan IV CONT 50 mcg/kg/min .Q3H18M IRAM 30.3 mls/hr Administration Protocol 50 MCG/KG/MIN Fentanyl Citrate 2,500 mcg in 250 mls @ 5 mls/hr 11/19/19 00:15 11/20/19 00:33 Fentanyl 2,500 Mcg/Ns 250 Ml IV CONT 75 mcg/hr .Q50H IRAM 7.5 mls/hr Titration Protocol 50 MCG/HR Piperacillin/Tazobactam/Dextros
[2019-11-20] MEDS: THIAMINE HCL 100 MG TABLET PO (08:30)
[2019-11-20] MEDS: NICOTINE (*PBKC) 21 MG PATCH 1 PATCH TRANSDERM (08:30)
[2019-11-20] MEDS: PANTOPRAZOLE SODIUM IV 40 MG VIAL IV PUSH (08:46)
[2019-11-20] MEDS: THERAPEUTIC MULTIVITAMINS/MINERALS TAB (*BKC) 1 TABLET PO (08:46)
[2019-11-20] MEDS: FOLIC ACID 1 MG TABLET PO (08:46)
--- NOTE | 2019-11-20 10:17 | PCDIET ---
Nutrition Follow-Up Complete: Nutrition Diagnosis: Inadequate oral intake related to oral intubation as evidenced by NPO status. Nutrition Goal: Patient to meet estimated nutritional needs. Goal in progress. Jevity 1.2 increasing toward goal rate (currently 40mL/hr), and patient tolerating fairly well with residuals 130mL and below. Last recorded weight is 101.5 kg which is stable. Bowel Motility: No documented BM. Labs Reviewed: Glu (137), BUN (5), Cr (0.6), Alb (3.6) Meds Noted: Precedex, Fentanyl, Folic Acid, Novolog, MVI/minerals, Protonix, Zosyn, s/p KCl Additional Notes: Right elbow with skin tear. No documented pressure sores. Recommend continuing to advance tube feeding to goal of 55mL/hr until able to extubate. Nutrition Monitoring and Evaluation: Follow up every Sunday/Sunday. Follow daily in ICU rounds.
[2019-11-20] MEDS: ACETAMINOPHEN 325 MG TABLET 650 MG PO (10:19)
[2019-11-20] MEDS: POTASSIUM CHLORIDE 20 MEQ PACKET (FOR LIQUID) 40 MEQ PO (12:41)
[2019-11-20] MEDS: KETOROLAC 30 MG/ML VIAL (*BKC) IV PUSH (13:31)
[2019-11-20 13:35] LABS: Glucose Point of Care 156 (65-105)
[2019-11-20] MEDS: PROPOFOL IV EMULSION 100 ML 18.2 MG IV CONT ×2 (16:13→21:50)
--- NOTE | 2019-11-20 16:56 | PM.IMPN ---
Progress Note: A&P Assessment and Plan (1) Alcohol withdrawal syndrome: Qualifiers: Complication of substance-induced condition: with unspecified complication Qualified Code(s): F10.239 - Alcohol dependence with withdrawal, unspecified Code(s): F10.239 - Alcohol dependence with withdrawal, unspecified Status: Acute Assessment and Plan: With confusion and possible seizure with postictal state and continue downhill course was intubated and mechanically ventilated 11/18 No seizure altered mental status since admission Continue sedation Continue thiamine and multivitamins (2) Alcohol withdrawal seizure: Qualifiers: Complication of substance-induced condition: with unspecified complication Qualified Code(s): F10.239 - Alcohol dependence with withdrawal, unspecified; R56.9 - Unspecified convulsions Code(s): F10.239 - Alcohol dependence with withdrawal, unspecified; R56.9 - Unspecified convulsions Status: Acute Assessment and Plan: Seizure precautions Treat alcohol withdrawal as above now on Precedex also (3) Acute alcoholic hepatitis: Code(s): K70.10 - Alcoholic hepatitis without ascites Status: Acute Assessment and Plan: Serology for viral hepatitis negative Ultrasound right upper quadrant normal abstaining from alcohol (4) Thrombocytopenia: Code(s): D69.6 - Thrombocytopenia, unspecified Status: Acute Assessment and Plan: Thought secondary to alcoholic liver disease also, continue to follow, up slightly to 74K today (5) Acute respiratory failure: Code(s): J96.00 - Acute respiratory failure, unspecified whether with hypoxia or hypercapnia Status: Acute Assessment and Plan: More short of breath evening 11/18 with agitation had to be intubated and mechanically ventilated.. Question whether maybe some degree of aspiration so Zosyn was added Subjective Date/time seen: 11/20/19 16:56 Interval history: Date of visit 11/19. 49-year-old alcoholic admitted with withdrawal now in ICU with Precedex and further sedation as as needed for agitation and DT symptoms. became more agitated and respiratory distress Pm 11/18 had to be intubated and mechanically ventilated Exam Narrative: Exam Narrative: Blood pressure 138/94 pulse 60 afebrile FIO2 30% sat 97% HEENT: , PERRL, sclerae nonicteric, NECK: No JVD, adenopathy, or thyromegaly CHEST: Clear to auscultation. Normal effort. HEART: NL S1/S2, regular, no murmur ABDOMEN: BS+, soft, nontender, no mass, no bruits EXTREMITIES: No , edema, NEUROLOGIC: sedated MUSCULOSKELETAL: . PSYCH: sedated unable to evaluate. Objective Data Vital Signs Vital Signs: Vital Signs - 24 hr 11/19/19 17:48 11/19/19 18:00 11/19/19 19:30 Temperature Pulse Rate 72 66 68 Pulse Rate [Monitor] Respiratory Rate 12 Blood Pressure 149/98 H Pulse Oximetry 98 97 98 11/19/19 19:55 11/19/19 20:00 11/19/19 22:00 Temperature 36.2 C L Pulse Rate 64 68 66 Pulse Rate [Monitor] 86 Respiratory Rate 13 12 Blood Pressure 152/101 H 147/99 H Pulse Oximetry 98 97 97 11/19/19 22:52 11/19/19 23:15 11/20/19 00:00 Temperature 37.6 C Pulse Rate 65 68 67 Pulse Rate [Monitor] 67 Respiratory Rate 12 Blood Pressure 146/100 H Pulse Oximetry 97 96 96 11/20/19 01:38 11/20/19 01:58 11/20/19 04:00 Temperature 38.1 C H Pulse Rate 65 68 67 Pulse Rate [Monitor] 69 Respiratory Rate 13 12 Blood Pressure 146/100 H 155/108 H Pulse Oximetry 96 95 97 11/20/19 04:45 11/20/19 06:00 11/20/19 08:00 Temperature 38.3 C H Pulse Rate 63 68 68 Pulse Rate [Monitor] 68 Respiratory Rate 12 12 Blood Pressure 155/104 H 156/102 H Pulse Oximetry 96 97 97 11/20/19 09:05 11/20/19 10:00 11/20/19 10:19 Temperature 38.1 C H 38.3 C H Pulse Rate 70 64 Pulse Rate [Monitor] Respiratory Rate 15 Blood Pressure 144/100 H Pulse Oximetry 96 95
[2019-11-20 19:00] LABS: Glucose Point of Care 136 (65-105)
[2019-11-20 23:56] LABS: Glucose Point of Care 131 (65-105)
[2019-11-21] VITALS (17 sets, daily range): BP systolic 119–187; BP diastolic 81–113; PULSE 55–118; RESP 12–22; TEMP 36.8–37.3; O2SAT 91–98
[2019-11-21] MEDS: PROPOFOL IV EMULSION 100 ML 18.2 MG IV CONT (03:16)
[2019-11-21 04:17] LABS: Alveolar/Arterial O2 Gradient 88.1 mmHg; Base Excess ABG 1.1 mEq/l (+/-2.0); Carboxyhemoglobin 0.9 % THb (0-2.0); Fractional Inspired Oxygen 30 %; HCO3 ABG 25.8 mEq/l (22.0-26.0); Methemoglobin ABG 0.4 %THb (0-1.5); Oxygen Content ABG 19.4 %vol (16.0-22.0); Oxygen Saturation ABG 95.6 % (95.0-100.0); Oxyhemoglobin 94.3 % THb (90.0-100.0); PCO2 ABG 41.2 mmHg (35.0-45.0); PO2 ABG 77.4 mmHg (80.0-100.0); PO2 FiO2 Ratio Arterial Blood 2.58 %; Reduced Hemoglobin 4.4 %THb (0-5.0); Total Hemoglobin 14.6 g/dL (12.0-18.0); pH ABG 7.414 (7.350-7.450)
[2019-11-21 04:19] LABS: Arterial Blood Gas PEEP 5 cmH2O; Arterial Blood Gas Vent Mode CMV; Arterial Blood Gas Ventilator rate 12 /MIN; Device VENTILATOR; Modified Allen's Test Pass; Site Drawn LEFT RADIAL
[2019-11-21 04:20] LABS: Arterial Blood Gas Tidal Volume 500 ml
[2019-11-21 04:32] LABS: Hematocrit 39.1 % (42.0-52.0); Hemoglobin 13.4 g/dL (14.0-18.0); Mean Corpuscular HGB Conc 34.3 g/dl (32-36); Mean Corpuscular Hemoglobin 35.3 pg (26-34); Mean Corpuscular Volume 102.9 fl (80-100); Platelet Count Result 103 k/mm3 (150-375); Red Cell Distribution Width 16.4 % (11.5-14.5); White Blood Count 5.1 K/mm3 (4.5-10.0)
[2019-11-21 04:43] LABS: Alanine Aminotransferase 199 U/L (4-50); Albumin Level 3.4 g/dL (3.5-5.1); Alkaline Phosphatase 180 U/L (38-126); Aspartate Amino Transferase 264 U/L (17-59); Bilirubin,Total 5.4 mg/dL (0.2-1.3); Blood Urea Nitrogen 6 mg/dL (9-20); Calcium 8.7 mg/dL (8.4-10.2); Carbon Dioxide 29 mmol/L (22-30); Chloride 105 mmol/L (98-107); Estimated CRCL calculation 131 ml/min; Estimated Glomerular Filt Rate > 60; Glucose 134 mg/dL (75-110); Magnesium 1.8 mg/dL (1.6-2.3); Potassium 3.2 mmol/L (3.4-5.0); Sodium 138 mmol/L (137-145)
[2019-11-21] MEDS: CHLORDIAZEPOXIDE 25 MG CAPSULE 100 MG PO ×2 (05:16→23:53)
[2019-11-21] MEDS: POTASSIUM CHLORIDE 20 MEQ PACKET (FOR LIQUID) 40 MEQ PO (09:11)
[2019-11-21] MEDS: THERAPEUTIC MULTIVITAMINS/MINERALS TAB (*BKC) 1 TABLET PO (09:12)
[2019-11-21] MEDS: FOLIC ACID 1 MG TABLET PO (09:12)
[2019-11-21] MEDS: NICOTINE (*PBKC) 21 MG PATCH 1 PATCH TRANSDERM (09:13)
[2019-11-21] MEDS: PANTOPRAZOLE SODIUM IV 40 MG VIAL IV PUSH (09:13)
[2019-11-21] MEDS: THIAMINE HCL 100 MG TABLET PO (09:15)
[2019-11-21] MEDS: ENOXAPARIN 40 MG/0.4 ML SYRINGE SUB-Q (09:27)
--- NOTE | 2019-11-21 09:34 | WPDINTPN ---
Progress Note: A&P Assessment and Plan (1) Acute respiratory failure: Code(s): J96.00 - Acute respiratory failure, unspecified whether with hypoxia or hypercapnia Status: Acute Assessment and Plan: Acute Respiratory failure secondary to delirium tremens and encephalopathy Continue full mechanical ventilation support to prevent hypoxemia/hypercarbia and end organ damage. ABG and PCXR reviewed and will repeat in am. concerns of aspiration pneumonia from chest x-ray and report of bilious section from ET tube after intubation blood culture and sputum culture are negative as of now continue empiric Zosyn Bronchodilators p.r.n. ventilator weaning will depend on mental status. sedation holiday was done yesterday and patient was initially following commands and was placed on pressure support. soon patient became agitated and uncontrollable hence both sedation holiday and pressure support trial were terminated i will perform sedation holiday again today (2) Alcohol withdrawal syndrome: Qualifiers: Complication of substance-induced condition: with unspecified complication Qualified Code(s): F10.239 - Alcohol dependence with withdrawal, unspecified Code(s): F10.239 - Alcohol dependence with withdrawal, unspecified Status: Acute Assessment and Plan: Alcohol withdrawal, with possible seizures, tremors, delirium, agitation. - patient now sedated with propofol, precedex and fentanyl - prior to that patient received multiple doses of ativan, haldol and zyprexa. - continue thiamine, folic acid and MVI - Libriium - sedation holiday today. may need to add benzodiazepine infusion at a low rate to control agitation despite maximum dose of Precedex (3) Alcohol withdrawal seizure: Qualifiers: Complication of substance-induced condition: with unspecified complication Qualified Code(s): F10.239 - Alcohol dependence with withdrawal, unspecified; R56.9 - Unspecified convulsions Code(s): F10.239 - Alcohol dependence with withdrawal, unspecified; R56.9 - Unspecified convulsions Status: Acute Assessment and Plan: at this time patient is sedated with propofol Ativan PRN when extubated - sedation holiday today - will get EEG if patient shows any other signs of seizures (4) Acute alcoholic hepatitis: Code(s): K70.10 - Alcoholic hepatitis without ascites Status: Acute Assessment and Plan: monitor LFTs. slowly improving ammonia was normal lipase was normal GI is following. recommend MRCP when patient is stable and extubated RUQ u/s 11/17: Nonspecific mild prominence of the pancreatic duct, measuring 3.4 mm. Hepatic steatosis (5) DVT prophylaxis: Code(s): Z29.9 - Encounter for prophylactic measures, unspecified Status: Acute Assessment and Plan: SCDs, Lovenox started as thrombocytopenia has improved (6) Thrombocytopenia: Code(s): D69.6 - Thrombocytopenia, unspecified Status: Acute Assessment and Plan: likely secondary ETOH abuse. continue to monitor improving slowly and now although 100 k (7) Elevated LFTs: Code(s): R79.89 - Other specified abnormal findings of blood chemistry Status: Acute Assessment and Plan: see above (8) Ileus: Code(s): K56.7 - Ileus, unspecified Status: Acute Assessment and Plan: tube feeds were held last night due to high residuals. I will check KUB, start Reglan and resume tube feeds at a lower rate (9) Hypokalemia: Code(s): E87.6 - Hypokalemia Status: Acute Assessment and Plan: replacement ordered Additional Plan DVT prophylaxis - SCDs, Lovenox Stress ulcer prophylaxis - PPI Nutrition - continue Tube Feeds Code Status - Full Code I spoke to patient's mother Evelia flynn by phone 11/18 and explained in detail patient's condition including need for sedation and mechanical ventilation.
--- NOTE | 2019-11-21 10:13 | WPDGIPROGNO ---
Progress Note: A&P Additional Plan Patient remains intubated and sedated in the intensive care unit. Additional history is unable to be obtained. On physical exam patient is intubated vital signs are stable. Lungs are clear. Heart without murmur. Abdomen bowel sounds are present soft nontender with no organomegaly. Labs reveal total bilirubin 5.4, AST 264, ALT 199, alk-phos 180, ammonia level 23. Hemoglobin 13, hematocrit 39, MCV 102, platelets 103 K. impression 1. Alcohol Hepatitis. Abnormal CT scan suggest pancreatic ducts dilatation. Consider elective evaluation of this with an MRCP later. Current lipase is normal. Likely not pathologic at this time. 2. Ventilator. Patient remains on ventilator because of sedation for alcohol withdrawal. 3. Alcohol withdrawal. 4. Alcohol abuse. Subjective Date/time seen: 11/21/19 10:13 Objective Data Vital Signs Vital Signs: Vital Signs - 24 hr 11/20/19 10:19 11/20/19 11:13 11/20/19 12:00 Temperature 38.3 C H 38.4 C H Pulse Rate 74 63 Pulse Rate [Monitor] 68 Respiratory Rate 12 Blood Pressure 158/101 H Pulse Oximetry 96 96 11/20/19 13:07 11/20/19 13:57 11/20/19 14:00 Temperature 38.4 C H Pulse Rate 61 61 Pulse Rate [Monitor] Respiratory Rate 12 Blood Pressure 139/93 H Pulse Oximetry 97 96 11/20/19 14:57 11/20/19 16:00 11/20/19 16:39 Temperature 37.2 C 37.3 C Pulse Rate 61 58 L Pulse Rate [Monitor] 62 Respiratory Rate 14 Blood Pressure 135/91 H Pulse Oximetry 98 97 11/20/19 18:00 11/20/19 20:00 11/20/19 22:00 Temperature 38.1 C H 37.3 C Pulse Rate 59 L 67 57 L Pulse Rate [Monitor] 60 Respiratory Rate 12 16 12 Blood Pressure 151/101 H 159/112 H 168/108 H Pulse Oximetry 97 100 97 11/20/19 23:12 11/21/19 00:00 11/21/19 02:00 Temperature 36.8 C Pulse Rate 65 58 L 55 L Pulse Rate [Monitor] 56 L Respiratory Rate 12 12 Blood Pressure 151/99 H 173/109 H Pulse Oximetry 100 97 97 11/21/19 02:14 11/21/19 04:00 11/21/19 05:12 Temperature 37.2 C Pulse Rate 55 L 58 L 59 L Pulse Rate [Monitor] 60 Respiratory Rate 12 Blood Pressure 187/113 H Pulse Oximetry 97 98 98 11/21/19 06:00 11/21/19 08:40 Temperature Pulse Rate 62 62 Pulse Rate [Monitor] Respiratory Rate 12 Blood Pressure 178/112 H Pulse Oximetry 96 95 Intake/Output Intake/Output: Intake & Output 11/18/19 11/19/19 11/20/19 11/21/19 23:59 23:59 23:59 23:59 Intake Total 2489 3890 2956.5 644 Output Total 1550 2700 2300 1150 Balance 939 1190 656.5 -506 Meds/Results Medications: Active Medications Generic Name Dose Route Start Last Admin Trade Name Freq PRN Reason Stop Dose Admin Acetaminophen 650 mg 11/20/19 09:25 11/20/19 10:19 Tylenol Tablet PO 650 mg Q6H PRN Administration Mild Pain (1-3) or Fever Chlordiazepoxide HCl 100 mg 11/18/19 06:00 11/21/19 05:16 Librium Po PO 100 mg Q6HR IRAM Administration Dextrose 12.5 gm 11/19/19 10:58 Dextrose 50% Syringe IV PUSH PRN PRN Hypoglycemia Protocol Enoxaparin Sodium 40 mg 11/21/19 09:00 11/21/19 09:27 Lovenox SUB-Q 40 mg DAILY IRAM Administration Folic Acid 1 mg 11/18/19 09:00 11/21/19 09:12 Folic Acid PO 1 mg DAILY IRAM Administration Glucagon 1 mg 11/19/19 10:58 Glucagon For Inj IM PRN PRN Hypoglycemia Protocol Glucose 15 gm 11/19/19 10:58 Glutose 15 PO PRN PRN Hypoglycemia Protocol Hydralazine HCl 20 mg 11/21/19 07:26 Apresoline Hcl Inj IV PUSH Q4H PRN For SBP > 160 Dexmedetomidine HCl 200 mcg in 50 mls @ 37.5 mls/hr 11/18/19 12:10 11/21/19 09:05 Precedex 200 Mcg/50 Ml IV CONT 1.5 mcg/kg/hr .Q1H20M IRAM 37.5 mls/hr Administration Protocol Propofol 100 mls @ 0 mls/hr 11/18/19 23:50 11/21/19 07:30 Diprivan IV CONT 0 mcg/kg/min .Q0M IRAM 0 mls/hr Titration Protocol Fentanyl Cit
--- NOTE | 2019-11-21 10:21 | PCDIET ---
Nutrition Follow-Up Complete: Nutrition Diagnosis: Inadequate oral intake related to oral intubation as evidenced by NPO status. Nutrition Goal: Patient to meet estimated nutritional needs. Goal in progress. Tube feeding held overnight for 350mL residual. Reglan started. Plan to attempt extubation today; if unable to extubate, MD ordered to restart Jevity 1.2 at 20mL/hr. Last recorded weight is 106.8 kg. which is increased from last review. Bowel Motility: No documented BM. RN to give Miralax today. Labs Reviewed: Glu (134), K (3.2), Alb (3.4) Meds Noted: Precedex, Novolog, Protonix, Thiamine, Fentanyl, Reglan, Zosyn, Miralax, MVI/minerals, Folic Acid, KCl Additional Notes: Propofol now off. Agree with plan to re-start tube feedings if unable to extubate. Goal tube feeding without use of Propofol will be 70mL/hr x 22 hours/day for 1848kcal and 85g protein. Nutrition Monitoring and Evaluation: Follow up every Sunday/Sunday. Follow daily in ICU rounds.
[2019-11-21 11:27] LABS: Alveolar/Arterial O2 Gradient 110.2 mmHg; Base Excess ABG 1.1 mEq/l (+/-2.0); Device VENTILATOR; Fractional Inspired Oxygen 30 %; HCO3 ABG 25.2 mEq/l (22.0-26.0); Modified Allen's Test Pass; Oxygen Content ABG 18.5 %vol (16.0-22.0); Oxygen Saturation ABG 91.2 % (95.0-100.0); Oxyhemoglobin 89.4 % THb (90.0-100.0); PCO2 ABG 38.6 mmHg (35.0-45.0); PO2 ABG 58.3 mmHg (80.0-100.0); PO2 FiO2 Ratio Arterial Blood 1.94 %; Site Drawn LEFT RADIAL; Total Hemoglobin 14.7 g/dL (12.0-18.0); pH ABG 7.433 (7.350-7.450)
[2019-11-21 11:28] LABS: Arterial Blood Gas PEEP 5 cmH2O; Arterial Blood Gas Pressure Support 5 cmH2O; Arterial Blood Gas Vent Mode SPONTANEOUS
--- NOTE | 2019-11-21 11:31 | PM.EVENT ---
Event Note Event Note Event Note: 5/5 PSV SBT done for more than 1 hour. RSBI, ABG and Vitals acceptable. Pt drowsy but arousable and following commands. Will extubate and monitor. NPO for now. continue Precedex infusion.
[2019-11-21] MEDS: METOCLOPRAMIDE HCL INJ 10 MG/2 ML VIAL 5 MG IV PUSH ×3 (12:27→23:46)
[2019-11-21 13:14] LABS: Glucose Point of Care 114 (65-105)
[2019-11-21] MEDS: LORAZEPAM INJ 2 MG/ML VIAL IV PUSH ×4 (15:10→23:46)
--- NOTE | 2019-11-21 16:09 | PM.IMPN ---
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 and probable extubate today No seizure altered mental status since admission Continue sedation, precedex only if possible Continue thiamine and multivitamins (2) Alcohol withdrawal seizure: Qualifiers: Complication of substance-induced condition: with unspecified complication Qualified Code(s): F10.239 - Alcohol dependence with withdrawal, unspecified; R56.9 - Unspecified convulsions Code(s): F10.239 - Alcohol dependence with withdrawal, unspecified; R56.9 - Unspecified convulsions Status: Acute Assessment and Plan: Seizure precautions Treat alcohol withdrawal as above now on Precedex also (3) Acute alcoholic hepatitis: Code(s): K70.10 - Alcoholic hepatitis without ascites Status: Acute Assessment and Plan: Serology for viral hepatitis negative Ultrasound right upper quadrant normal abstaining from alcohol Lfts slowly falling (4) Thrombocytopenia: Code(s): D69.6 - Thrombocytopenia, unspecified Status: Acute Assessment and Plan: Thought secondary to alcoholic liver disease also, continue to follow, up slightly to 103K today (5) Acute respiratory failure: Code(s): J96.00 - Acute respiratory failure, unspecified whether with hypoxia or hypercapnia Status: Acute Assessment and Plan: More short of breath evening 11/18 with agitation had to be intubated and mechanically ventilated.. Question whether maybe some degree of aspiration so Zosyn was added(D#3) probable extubate today as above Subjective Date/time seen: 11/21/19 16:09 Interval history: Date of visit 11/20. 49-year-old alcoholic admitted with withdrawal now in ICU with Precedex and further sedation as needed for agitation and DT symptoms. became more agitated and respiratory distress Pm 11/18 had to be intubated and mechanically ventilated. Exam Narrative: Exam Narrative: Blood pressure 124/80 pulse 70 afebrile FIO2 30% sat 97% HEENT: , PERRL, sclerae nonicteric, NECK: No JVD, adenopathy, or thyromegaly CHEST: Clear to auscultation. Normal effort. HEART: NL S1/S2, regular, no murmur ABDOMEN: BS+, soft, nontender, no mass, no bruits EXTREMITIES: No , edema, NEUROLOGIC: sedation decreased and following simple commands. PSYCH: sedated unable to evaluate. Objective Data Vital Signs Vital Signs: Vital Signs - 24 hr 11/20/19 16:39 11/20/19 18:00 11/20/19 20:00 Temperature 38.1 C H 37.3 C Pulse Rate 58 L 59 L 67 Pulse Rate [Monitor] 60 Respiratory Rate 12 16 Blood Pressure 151/101 H 159/112 H Pulse Oximetry 97 97 100 11/20/19 22:00 11/20/19 23:12 11/21/19 00:00 Temperature 36.8 C Pulse Rate 57 L 65 58 L Pulse Rate [Monitor] 56 L Respiratory Rate 12 12 Blood Pressure 168/108 H 151/99 H Pulse Oximetry 97 100 97 11/21/19 02:00 11/21/19 02:14 11/21/19 04:00 Temperature 37.2 C Pulse Rate 55 L 55 L 58 L Pulse Rate [Monitor] 60 Respiratory Rate 12 12 Blood Pressure 173/109 H 187/113 H Pulse Oximetry 97 97 98 11/21/19 05:12 11/21/19 06:00 11/21/19 08:00 Temperature Pulse Rate 59 L 62 63 Pulse Rate [Monitor] 74 Respiratory Rate 12 12 Blood Pressure 178/112 H 154/102 H Pulse Oximetry 98 96 95 11/21/19 08:40 11/21/19 10:00 11/21/19 12:00 Temperature Pulse Rate 62 65 73 Pulse Rate [Monitor] Respiratory Rate 12 15 Blood Pressure 159/104 H 138/86 Pulse Oximetry 95 96
[2019-11-21 17:07] LABS: Blood Urea Nitrogen 8 mg/dL (9-20); Carbon Dioxide 27 mmol/L (22-30); Chloride 104 mmol/L (98-107); Estimated CRCL calculation 150 ml/min; Estimated Glomerular Filt Rate > 60; Glucose 118 mg/dL (75-110); Potassium 3.4 mmol/L (3.4-5.0); Sodium 139 mmol/L (137-145)
[2019-11-21 18:39] LABS: Glucose Point of Care 107 (65-105)
[2019-11-21] MEDS: hydrALAZINE HCL 20 MG/ML VIAL IV PUSH (20:04)
[2019-11-21 23:36] LABS: Glucose Point of Care 81 (65-105)
[2019-11-22] VITALS (13 sets, daily range): BP systolic 114–154; BP diastolic 63–96; PULSE 68–107; RESP 14–25; TEMP 36.6–37.3; O2SAT 93–99
[2019-11-22 04:09] LABS: Alveolar/Arterial O2 Gradient 142.2 mmHg; Base Excess ABG 2.3 mEq/l (+/-2.0); Carboxyhemoglobin 0.6 % THb (0-2.0); Fractional Inspired Oxygen 36 %; Methemoglobin ABG 0.4 %THb (0-1.5); Oxygen Content ABG 17.8 %vol (16.0-22.0); Oxygen Saturation ABG 95.2 % (95.0-100.0); Oxyhemoglobin 93.8 % THb (90.0-100.0); PCO2 ABG 37.1 mmHg (35.0-45.0); PO2 ABG 71.4 mmHg (80.0-100.0); PO2 FiO2 Ratio Arterial Blood 1.98 %; Reduced Hemoglobin 5.2 %THb (0-5.0); Total Hemoglobin 13.5 g/dL (12.0-18.0); pH ABG 7.463 (7.350-7.450)
[2019-11-22 04:10] LABS: Device NASAL CANNULA; Modified Allen's Test Pass; Site Drawn RIGHT RADIAL
[2019-11-22 04:35] LABS: Hematocrit 37.8 % (42.0-52.0); Hemoglobin 12.7 g/dL (14.0-18.0); Immature Platelet Fraction Pct 7.9 % (0.9-11.2); Mean Corpuscular HGB Conc 33.6 g/dl (32-36); Mean Corpuscular Hemoglobin 34.7 pg (26-34); Mean Corpuscular Volume 103.3 fl (80-100); Mean Platelet Volume 11.3 fl (7.4-10.4); Platelet Count Result 135 k/mm3 (150-375); Red Blood Count 3.66 M/mm3 (4.6-6.20); Red Cell Distribution Width 15.9 % (11.5-14.5); White Blood Count 4.7 K/mm3 (4.5-10.0)
[2019-11-22 04:47] LABS: Alanine Aminotransferase 181 U/L (4-50); Albumin Level 3.6 g/dL (3.5-5.1); Alkaline Phosphatase 177 U/L (38-126); Aspartate Amino Transferase 231 U/L (17-59); Bilirubin,Total 5.5 mg/dL (0.2-1.3); Blood Urea Nitrogen 8 mg/dL (9-20); Carbon Dioxide 26 mmol/L (22-30); Chloride 103 mmol/L (98-107); Estimated CRCL calculation 177 ml/min; Estimated Glomerular Filt Rate > 60; Glucose 107 mg/dL (75-110); Magnesium 1.6 mg/dL (1.6-2.3); Potassium 3.3 mmol/L (3.4-5.0); Sodium 138 mmol/L (137-145)
[2019-11-22] MEDS: METOCLOPRAMIDE HCL INJ 10 MG/2 ML VIAL 5 MG IV PUSH ×4 (04:55→23:41)
[2019-11-22] MEDS: CHLORDIAZEPOXIDE 25 MG CAPSULE 100 MG PO ×4 (05:00→23:41)
--- NOTE | 2019-11-22 07:00 | WPDINTPN ---
Progress Note: A&P Assessment and Plan (1) Acute respiratory failure: Code(s): J96.00 - Acute respiratory failure, unspecified whether with hypoxia or hypercapnia Status: Acute Assessment and Plan: Acute Respiratory failure secondary to delirium tremens and encephalopathy 11/20 patient was extubated patient's oxygenation is adequate and saturating well on nasal cannula with no respiratory distress monitor airway until patient is weaned off of Precedex infusion ABG and PCXR reviewed concerns of aspiration pneumonia from chest x-ray and report of bilious section from ET tube after intubation blood culture negative as of now sputum cultures positive for Pseudomonas which is sensitive to Zosyn. continue Zosyn to cover for Pseudomonas and anaerobes Bronchodilators p.r.n. (2) Alcohol withdrawal syndrome: Qualifiers: Complication of substance-induced condition: with unspecified complication Qualified Code(s): F10.239 - Alcohol dependence with withdrawal, unspecified Code(s): F10.239 - Alcohol dependence with withdrawal, unspecified Status: Acute Assessment and Plan: Alcohol withdrawal, with possible seizures, tremors, delirium, agitation. - for last few days patient was sedated with propofol, precedex and fentanyl - prior to intubation patient received multiple doses of ativan, haldol and zyprexa. - continue thiamine, folic acid and MVI - continue Librium andp.r.n. Ativan - will try to wean off Precedex infusion (3) Alcohol withdrawal seizure: Qualifiers: Complication of substance-induced condition: with unspecified complication Qualified Code(s): F10.239 - Alcohol dependence with withdrawal, unspecified; R56.9 - Unspecified convulsions Code(s): F10.239 - Alcohol dependence with withdrawal, unspecified; R56.9 - Unspecified convulsions Status: Acute Assessment and Plan: no episodes in last 3 days Ativan PRN - will get EEG if patient shows any other signs of seizures (4) Acute alcoholic hepatitis: Code(s): K70.10 - Alcoholic hepatitis without ascites Status: Acute Assessment and Plan: monitor LFTs. slowly improving ammonia was normal lipase was normal GI is following. recommend MRCP when patient is stable and extubated RUQ u/s 11/17: Nonspecific mild prominence of the pancreatic duct, measuring 3.4 mm. Hepatic steatosis (5) DVT prophylaxis: Code(s): Z29.9 - Encounter for prophylactic measures, unspecified Status: Acute Assessment and Plan: SCDs, Lovenox started as thrombocytopenia has improved (6) Thrombocytopenia: Code(s): D69.6 - Thrombocytopenia, unspecified Status: Acute Assessment and Plan: likely secondary ETOH abuse. continue to monitor improving slowly and now although 100 k (7) Elevated LFTs: Code(s): R79.89 - Other specified abnormal findings of blood chemistry Status: Acute Assessment and Plan: see above (8) Ileus: Code(s): K56.7 - Ileus, unspecified Status: Acute Assessment and Plan: no nausea vomiting at this time patient tolerating p.o. pills will advance diet once patient is more awake (9) Hypokalemia: Code(s): E87.6 - Hypokalemia Status: Acute Assessment and Plan: replacement ordered Additional Plan DVT prophylaxis - SCDs, Lovenox Stress ulcer prophylaxis - PPI Nutrition - continue Tube Feeds Code Status - Full Code Subjective Date/time seen: 11/22/19 08:26 Interval history: Date of visit 11/17. 49-year-old high a holiday admitted with withdrawal her now in ICU with Precedex and benzodiazepine as as needed for agitation and DT symptoms. Intubated and sedated on 11/18 11/20 Patient was extubated. continues to be on Precedex infusion patient did well overnight from respiratory standpoint and continues to saturate well on nasal cannula with no respiratory
[2019-11-22] MEDS: NICOTINE (*PBKC) 21 MG PATCH 1 PATCH TRANSDERM (07:57)
[2019-11-22] MEDS: THIAMINE HCL 100 MG TABLET PO (07:57)
[2019-11-22] MEDS: POTASSIUM CHLORIDE 20 MEQ TABLET 40 MEQ PO (07:58)
[2019-11-22] MEDS: PANTOPRAZOLE SODIUM IV 40 MG VIAL IV PUSH (08:04)
[2019-11-22] MEDS: THERAPEUTIC MULTIVITAMINS/MINERALS TAB (*BKC) 1 TABLET PO (08:04)
[2019-11-22] MEDS: FOLIC ACID 1 MG TABLET PO (08:04)
[2019-11-22] MEDS: ENOXAPARIN 40 MG/0.4 ML SYRINGE SUB-Q (08:17)
[2019-11-22] MEDS: DEXTROSE 5%/0.9% SOD CHL 1,000 ML 75 ML IV CONT ×2 (11:57→23:45)
[2019-11-22 12:02] LABS: Glucose Point of Care 78 (65-105)
[2019-11-22] MEDS: LORAZEPAM INJ 2 MG/ML VIAL IV PUSH (13:05)
--- NOTE | 2019-11-22 16:00 | PM.IMPN ---
Progress Note: A&P Assessment and Plan (1) Alcohol withdrawal syndrome: Qualifiers: Complication of substance-induced condition: with unspecified complication Qualified Code(s): F10.239 - Alcohol dependence with withdrawal, unspecified Code(s): F10.239 - Alcohol dependence with withdrawal, unspecified Status: Acute Assessment and Plan: With confusion and possible seizure with postictal state and continue downhill course was intubated and mechanically ventilated 11/18, extubated 11/20 and doing well with NC No seizure since admission Continue sedation, precedex only and probable taper off today Continue thiamine and multivitamins (2) Alcohol withdrawal seizure: Qualifiers: Complication of substance-induced condition: with unspecified complication Qualified Code(s): F10.239 - Alcohol dependence with withdrawal, unspecified; R56.9 - Unspecified convulsions Code(s): F10.239 - Alcohol dependence with withdrawal, unspecified; R56.9 - Unspecified convulsions Status: Acute Assessment and Plan: Seizure precautions Treat alcohol withdrawal as above now on Precedex (3) Acute alcoholic hepatitis: Code(s): K70.10 - Alcoholic hepatitis without ascites Status: Acute Assessment and Plan: Serology for viral hepatitis negative Ultrasound right upper quadrant normal abstaining from alcohol Lfts slowly falling but bili stable (4) Thrombocytopenia: Code(s): D69.6 - Thrombocytopenia, unspecified Status: Acute Assessment and Plan: Thought secondary to alcoholic liver disease also, continue to follow, up to 135K today (5) Acute respiratory failure: Code(s): J96.00 - Acute respiratory failure, unspecified whether with hypoxia or hypercapnia Status: Acute Assessment and Plan: More short of breath evening 11/18 with agitation had to be intubated and mechanically ventilated.. Question whether maybe some degree of aspiration so Zosyn was added(D#4) extubated 11/20 Subjective Date/time seen: 11/22/19 16:00 Interval history: Date of visit 11/21. 49-year-old alcoholic admitted with withdrawal now in ICU with Precedex and PRN ativan as needed for agitation and DT symptoms. became more agitated and respiratory distress Pm 11/18 had to be intubated and mechanically ventilated but able to be extubated pm 11/20 Exam Narrative: Exam Narrative: Blood pressure 144/84 pulse 70 afebrile sat 95% 4L NC HEENT: , PERRL, sclerae nonicteric, NECK: No JVD, adenopathy, or thyromegaly CHEST: Clear to auscultation. Normal effort. HEART: NL S1/S2, regular, no murmur ABDOMEN: BS+, soft, nontender, no mass, no bruits EXTREMITIES: No , edema, NEUROLOGIC: sedation decreased and following simple commands. PSYCH: sedated enough that still to difficult to evaluate. Objective Data Vital Signs Vital Signs: Vital Signs - 24 hr 11/21/19 18:00 11/21/19 20:00 11/21/19 21:00 Temperature 37.3 C 36.9 C Pulse Rate 72 64 Pulse Rate [Monitor] Respiratory Rate 22 H 16 Blood Pressure 137/100 H 170/105 H Pulse Oximetry 93 94 93 11/21/19 22:00 11/21/19 23:34 11/22/19 00:00 Temperature 37.1 C Pulse Rate 94 81 85 Pulse Rate [Monitor] Respiratory Rate 13 20 Blood Pressure 119/98 H 119/98 H Pulse Oximetry 97 93 11/22/19 02:00 11/22/19 04:00 11/22/19 05:59 Temperature 37.1 C Pulse Rate 74 72 71 Pulse Rate [Monitor] Respiratory Rate 25 H 14 21 H Blood Pressure 134/89 134/89 140/91 H Pulse Oximetry 95 98 98 11/22/19 08:00 11/22/19 10:00 11/22/19 12:00 Temperature 36.9 C 36.8 C Pulse Rate 96 69 97 Pulse Rate [Monitor] 95 97 Respiratory Rate 14 14 21 H Blood Pressure 137/79 114/63 Pulse Oximetry 93 94 95 11/22/19 14:00 Temperature Pulse Rate 90 Pulse Rate [Monitor] Respiratory Rate 22 H Blood Pressure 145/85 H Pulse Oximetry 98 Intake/Output Intake/Output: Intake & Output 0
[2019-11-22 17:26] LABS: Glucose Point of Care 84 (65-105)
[2019-11-22 23:51] LABS: Glucose Point of Care 105 (65-105)
[2019-11-23] VITALS (9 sets, daily range): BP systolic 142–165; BP diastolic 83–95; PULSE 93–106; RESP 16–20; TEMP 36.3–37.1; O2SAT 95–100
[2019-11-23 04:14] LABS: Hemoglobin 12.3 g/dL (14.0-18.0); Mean Corpuscular HGB Conc 33.2 g/dl (32-36); Mean Corpuscular Hemoglobin 34.8 pg (26-34); Mean Corpuscular Volume 104.8 fl (80-100); Mean Platelet Volume 10.5 fl (7.4-10.4); Platelet Count Result 187 k/mm3 (150-375); Red Blood Count 3.53 M/mm3 (4.6-6.20); Red Cell Distribution Width 16.1 % (11.5-14.5); White Blood Count 4.9 K/mm3 (4.5-10.0)
[2019-11-23 04:30] LABS: Alanine Aminotransferase 160 U/L (4-50); Albumin Level 3.6 g/dL (3.5-5.1); Alkaline Phosphatase 195 U/L (38-126); Aspartate Amino Transferase 191 U/L (17-59); Bilirubin,Total 5.2 mg/dL (0.2-1.3); Blood Urea Nitrogen 7 mg/dL (9-20); Calcium 9.2 mg/dL (8.4-10.2); Carbon Dioxide 26 mmol/L (22-30); Chloride 105 mmol/L (98-107); Estimated CRCL calculation 169 ml/min; Estimated Glomerular Filt Rate > 60; Glucose 122 mg/dL (75-110); Magnesium 1.8 mg/dL (1.6-2.3); Potassium 3.5 mmol/L (3.4-5.0); Sodium 139 mmol/L (137-145)
[2019-11-23] MEDS: METOCLOPRAMIDE HCL INJ 10 MG/2 ML VIAL 5 MG IV PUSH ×4 (05:06→23:03)
[2019-11-23] MEDS: CHLORDIAZEPOXIDE 25 MG CAPSULE 100 MG PO (05:06)
--- NOTE | 2019-11-23 06:30 | PC.NURSE ---
This patient, Manny Morley, was transferred to [ [id number]] on 11/23/19 at 0656. Personal belongings sent with patient. Belongings list checked and signed with receiving [ ]. Report given to [ Kareen CASTILLO]. Appropriate documentation sent with patient.
--- NOTE | 2019-11-23 06:54 | PC.NURSE ---
This patient, Manny Morley, was received from ICU on 11/23/19 at 0625. Received report from JONATHAN Monique. Medications, chart and peronal belongings sent with pt.
[2019-11-23] MEDS: FOLIC ACID 1 MG TABLET PO (08:16)
[2019-11-23] MEDS: THERAPEUTIC MULTIVITAMINS/MINERALS TAB (*BKC) 1 TABLET PO (08:16)
[2019-11-23] MEDS: THIAMINE HCL 100 MG TABLET PO (08:16)
[2019-11-23] MEDS: PANTOPRAZOLE SODIUM IV 40 MG VIAL IV PUSH (08:16)
[2019-11-23] MEDS: NICOTINE (*PBKC) 21 MG PATCH 1 PATCH TRANSDERM (08:16)
[2019-11-23] MEDS: ENOXAPARIN 40 MG/0.4 ML SYRINGE SUB-Q (08:16)
[2019-11-23] MEDS: POTASSIUM CHLORIDE 20 MEQ TABLET 40 MEQ PO (11:37)
[2019-11-23] MEDS: CHLORDIAZEPOXIDE 25 MG CAPSULE 50 MG PO ×3 (11:37→23:04)
[2019-11-23 11:56] LABS: Glucose Point of Care 119 (65-105)
--- NOTE | 2019-11-23 12:11 | PM.IMPN ---
Progress Note: A&P Assessment and Plan (1) Alcohol withdrawal syndrome: Qualifiers: Complication of substance-induced condition: with unspecified complication Qualified Code(s): F10.239 - Alcohol dependence with withdrawal, unspecified Code(s): F10.239 - Alcohol dependence with withdrawal, unspecified Status: Acute Assessment and Plan: With confusion and possible seizure with postictal state and continue downhill course was intubated and mechanically ventilated 11/18, extubated 11/20 and doing well with NC No seizure since admission Continue sedation, scheduled libruim only and probable taper off as tolerated Continue thiamine and multivitamins (2) Alcohol withdrawal seizure: Qualifiers: Complication of substance-induced condition: with unspecified complication Qualified Code(s): F10.239 - Alcohol dependence with withdrawal, unspecified; R56.9 - Unspecified convulsions Code(s): F10.239 - Alcohol dependence with withdrawal, unspecified; R56.9 - Unspecified convulsions Status: Acute Assessment and Plan: Seizure precautions Treat alcohol withdrawal as above now on Precedex (3) Acute alcoholic hepatitis: Code(s): K70.10 - Alcoholic hepatitis without ascites Status: Acute Assessment and Plan: Serology for viral hepatitis negative Ultrasound right upper quadrant normal abstaining from alcohol Lfts slowly falling but bili stable (4) Thrombocytopenia: Code(s): D69.6 - Thrombocytopenia, unspecified Status: Acute Assessment and Plan: Thought secondary to alcoholic liver disease also, continue to follow, up to 178K today (5) Acute respiratory failure: Code(s): J96.00 - Acute respiratory failure, unspecified whether with hypoxia or hypercapnia Status: Acute Assessment and Plan: More short of breath evening 11/18 with agitation had to be intubated and mechanically ventilated.. Question whether maybe some degree of aspiration so Zosyn was added(D#5) extubated 11/20 , 98% 2L NC today Subjective Date/time seen: 11/23/19 12:11 Interval history: Date of visit 11/22. 49-year-old alcoholic admitted with withdrawal out of ICU off Precedex and PRN ativan as needed for agitation and DT symptoms. became more agitated and respiratory distress Pm 11/18 had to be intubated and mechanically ventilated but able to be extubated pm 11/20. more alert today but still not at baseline Exam Narrative: Exam Narrative: Blood pressure 156/90 pulse 96afebrile sat 98% 2L NC HEENT: , PERRL, sclerae icteric, NECK: No JVD, adenopathy, or thyromegaly CHEST: Clear to auscultation. Normal effort. HEART: NL S1/S2, regular, no murmur ABDOMEN: BS+, soft, nontender, no mass, no bruits EXTREMITIES: No , edema, NEUROLOGIC: sedation decreased and following simple commands.still agitated PSYCH: sedated enough that still to difficult to evaluate. Objective Data Vital Signs Vital Signs: Vital Signs - 24 hr 11/22/19 14:00 11/22/19 16:00 11/22/19 18:00 Temperature 36.6 C Pulse Rate 90 105 H 103 H Pulse Rate [Monitor] 105 H Respiratory Rate 22 H 19 20 Blood Pressure 145/85 H 146/96 H 154/89 H Pulse Oximetry 98 98 98 11/22/19 20:00 11/22/19 22:00 11/22/19 23:55 Temperature 37.3 C 37.1 C Pulse Rate 107 H 96 93 Pulse Rate [Monitor] Respiratory Rate 17 22 H 21 H Blood Pressure 154/89 H 145/90 H 145/90 H Pulse Oximetry 98 98 99 11/23/19 00:00 11/23/19 02:00 11/23/19 03:56 Temperature 37.1 C Pulse Rate 106 H 101 H 98 Pulse Rate [Monitor] Respiratory Rate 20 16 Blood Pressure 157/92 H 157/92 H Pulse Oximetry 100 97 11/23/19 06:00 11/23/19 11:49 Temperature Pulse Rate 100 Pulse Rate [Monitor] Respiratory Rate Blood Pressure Pulse Oximetry 99 98 Intake/Output Intake/Output: Intake & Output 11/20/19 11/21/19 11/22/19 11/23/19 23:59 23:59 23:59 23:59 Intake Total 2956.5
[2019-11-23] MEDS: DEXTROSE 5%/0.9% SOD CHL 1,000 ML 75 ML IV CONT (13:52)
[2019-11-23 17:47] LABS: Glucose Point of Care 117 (65-105)
[2019-11-23] MEDS: LORAZEPAM INJ 2 MG/ML VIAL IV PUSH ×2 (22:47→23:50)
--- NOTE | 2019-11-23 22:55 | PC.NURSE ---
Pt shaking and hallucinating. Pt trying to exit the bed. Pt highly anxious. PRN Ativan given
[2019-11-24] VITALS: BP 152/89; PULSE 112; RESP 16; TEMP 36.5; O2SAT 95
[2019-11-24 00:51] LABS: Glucose Point of Care 127 (65-105)
[2019-11-24] MEDS: DEXTROSE 5%/0.9% SOD CHL 1,000 ML 75 ML IV CONT ×2 (02:48→16:23)
[2019-11-24] MEDS: LORAZEPAM INJ 2 MG/ML VIAL IV PUSH ×4 (02:50→17:52)
[2019-11-24 04:00] VITALS: BP 148/92; PULSE 96; RESP 18; TEMP 37.3; O2SAT 96
[2019-11-24] MEDS: METOCLOPRAMIDE HCL INJ 10 MG/2 ML VIAL 5 MG IV PUSH ×2 (06:28→11:28)
[2019-11-24] MEDS: CHLORDIAZEPOXIDE 25 MG CAPSULE 50 MG PO ×4 (06:28→23:46)
[2019-11-24 06:37] LABS: Hematocrit 35.7 % (42.0-52.0); Hemoglobin 11.9 g/dL (14.0-18.0); Mean Corpuscular HGB Conc 33.3 g/dl (32-36); Mean Corpuscular Hemoglobin 35.3 pg (26-34); Mean Corpuscular Volume 105.9 fl (80-100); Mean Platelet Volume 10.2 fl (7.4-10.4); Platelet Count Result 210 k/mm3 (150-375); Red Blood Count 3.37 M/mm3 (4.6-6.20); Red Cell Distribution Width 16.2 % (11.5-14.5); White Blood Count 4.9 K/mm3 (4.5-10.0)
[2019-11-24 06:47] LABS: Alanine Aminotransferase 155 U/L (4-50); Albumin Level 3.7 g/dL (3.5-5.1); Alkaline Phosphatase 225 U/L (38-126); Aspartate Amino Transferase 171 U/L (17-59); Blood Urea Nitrogen 3 mg/dL (9-20); Calcium 9.3 mg/dL (8.4-10.2); Carbon Dioxide 25 mmol/L (22-30); Chloride 110 mmol/L (98-107); Estimated CRCL calculation 150 ml/min; Estimated Glomerular Filt Rate > 60; Glucose 128 mg/dL (75-110); Potassium 3.7 mmol/L (3.4-5.0); Sodium 140 mmol/L (137-145)
[2019-11-24 06:49] LABS: Glucose Point of Care 119 (65-105)
--- NOTE | 2019-11-24 07:21 | WPDGIPROGNO ---
Progress Note: A&P Additional Plan Patient more alert this morning. He tolerated liquids. Physical exam reveals abdomen be benign. Bowel sounds are present. Abdomen is soft and nontender. Bowel sounds are normal active. Hemoglobin 11.9, hematocrit 35, MCV 105, platelets 210 K. Total bilirubin 4, AST 171, ALT 155, alk-phos 225. Impression 1. Alcohol withdrawal. Patient improving gradually. No longer intubated. 2. Alcoholic hepatitis. LFTs remain elevated. Hepatitis serologies negative. CT scan with nonspecific pancreatic duct dilatation. 3. Alcohol abuse. Plan is to gradually increase diet. Gradually increase activity. Continue alcohol avoidance. Subjective Date/time seen: 11/24/19 07:21 Objective Data Vital Signs Vital Signs: Vital Signs - 24 hr 11/23/19 10:00 11/23/19 11:49 11/23/19 14:00 Temperature 36.8 C 37.0 C Pulse Rate 93 101 H Respiratory Rate 19 19 Blood Pressure 165/87 H 150/83 H Pulse Oximetry 98 98 97 11/23/19 18:00 11/23/19 20:00 11/24/19 00:00 Temperature 37.0 C 36.3 C L 36.5 C Pulse Rate 105 H 103 H 112 H Respiratory Rate 19 18 16 Blood Pressure 142/95 H 146/87 H 152/89 H Pulse Oximetry 97 95 95 Intake/Output Intake/Output: Intake & Output 11/21/19 11/22/19 11/23/19 11/24/19 23:59 23:59 23:59 23:59 Intake Total 1638.5 1570 2041 799 Output Total 3354 526 3357 Balance 138.5 770 -809 799 Meds/Results Medications: Active Medications Generic Name Dose Route Start Last Admin Trade Name Freq PRN Reason Stop Dose Admin Acetaminophen 650 mg 11/20/19 09:25 11/20/19 10:19 Tylenol Tablet PO 650 mg Q6H PRN Administration Mild Pain (1-3) or Fever Chlordiazepoxide HCl 50 mg 11/23/19 12:00 11/24/19 06:28 Librium Po PO 50 mg Q6HR IRAM Administration Dextrose 12.5 gm 11/19/19 10:58 Dextrose 50% Syringe IV PUSH PRN PRN Hypoglycemia Protocol Enoxaparin Sodium 40 mg 11/21/19 09:00 11/23/19 08:16 Lovenox SUB-Q 40 mg DAILY IRAM Administration Folic Acid 1 mg 11/18/19 09:00 11/23/19 08:16 Folic Acid PO 1 mg DAILY IRAM Administration Glucagon 1 mg 11/19/19 10:58 Glucagon For Inj IM PRN PRN Hypoglycemia Protocol Glucose 15 gm 11/19/19 10:58 Glutose 15 PO PRN PRN Hypoglycemia Protocol Hydralazine HCl 20 mg 11/21/19 07:26 11/21/19 20:04 Apresoline Hcl Inj IV PUSH 20 mg Q4H PRN Administration For SBP > 160 Piperacillin/Tazobactam/Dextrose 3.375 gm in 50 mls @ 100 mls/hr 11/19/19 08:00 11/24/19 03:19 Zosyn 3.375 Gm/D5w 50ml Pm IVPB Infused Q6H IRAM Infusion Dextrose 1,000 mls @ 100 mls/hr 11/19/19 10:58 Dextrose 5% 1,000 Ml IVPB PRN PRN Hypoglycemia Protocol Dextrose/Sodium Chloride 1,000 mls @ 75 mls/hr 11/22/19 10:30 11/24/19 02:48 Dextrose 5% Sodium Chloride 0.9% IV CONT 75 mls/hr .[id number] IRAM Administration Insulin Aspart 2 - 5 units 11/19/19 12:00 11/24/19 06:28 Novolog SUB-Q Not Given Q6HR IRAM Protocol Lorazepam 2 mg 11/21/19 14:59 11/24/19 02:50 Ativan Inj IV PUSH 2 mg Q2H PRN Administration Agitation Lorazepam 2 mg 11/22/19 08:40 Ativan Inj IV PUSH Q1HR PRN seizure Metoclopramide HCl 5 mg 11/21/19 12:00 11/24/19 06:28 Reglan IV PUSH 5 mg Q6HR IRAM Administration Multivitamins/Calcium 1 tablet 11/18/19 09:00 11/23/19 08:16 Therapeutic Multivitamins/Minerals PO 1 tablet QAM IRAM Administration Nicotine 1 patch 11/18/19 01:15 11/23/19 08:16 Nicoderm Cq 21 Mg TRANSDERM 1 patch QAM IRAM Administration Ondansetron HCl 4 mg 11/17/19 03:44 Zofran Inj IV PUSH Q4H PRN Nausea Pantoprazole Sodium 40 mg 11/20/19 09:00 11/23/19 08:16 Protonix Iv IV PUSH 40 mg QAM IRAM Administration Polyethylene Glycol 17 gm 11/21/19 07:27 Miralax PO QAM PRN Constipation Thiamine HCl 100 mg
[2019-11-24] MEDS: THERAPEUTIC MULTIVITAMINS/MINERALS TAB (*BKC) 1 TABLET PO (08:48)
[2019-11-24] MEDS: THIAMINE HCL 100 MG TABLET PO (08:48)
[2019-11-24] MEDS: ENOXAPARIN 40 MG/0.4 ML SYRINGE SUB-Q (08:48)
[2019-11-24] MEDS: NICOTINE (*PBKC) 21 MG PATCH 1 PATCH TRANSDERM (08:48)
[2019-11-24] MEDS: FOLIC ACID 1 MG TABLET PO (08:48)
[2019-11-24] MEDS: PANTOPRAZOLE SODIUM IV 40 MG VIAL IV PUSH (08:49)
[2019-11-24 10:00] VITALS: BP 158/89; PULSE 85; RESP 18; TEMP 37.6; O2SAT 94
[2019-11-24 11:28] VITALS: BMI 10.0
[2019-11-24 11:30] VITALS: BMI 10.0
[2019-11-24 11:40] LABS: Glucose Point of Care 120 (65-105)
--- NOTE | 2019-11-24 11:55 | PM.IMPN ---
Progress Note: A&P Assessment and Plan (1) Alcohol withdrawal syndrome: Qualifiers: Complication of substance-induced condition: with unspecified complication Qualified Code(s): F10.239 - Alcohol dependence with withdrawal, unspecified Code(s): F10.239 - Alcohol dependence with withdrawal, unspecified Status: Acute Assessment and Plan: With confusion and possible seizure with postictal state and continue downhill course was intubated and mechanically ventilated 11/18, extubated 11/20 and doing well , now on RA No seizure since admission Continue sedation, scheduled libruim(down to 50 mg q6 11/22) and prn ativan. and probable taper off as tolerated Continue thiamine and multivitamins Family (mother and sister) trying to arrange inpatient rehab if patient continues to improve and agrees, they are working with [facility] (2) Alcohol withdrawal seizure: Qualifiers: Complication of substance-induced condition: with unspecified complication Qualified Code(s): F10.239 - Alcohol dependence with withdrawal, unspecified; R56.9 - Unspecified convulsions Code(s): F10.239 - Alcohol dependence with withdrawal, unspecified; R56.9 - Unspecified convulsions Status: Acute Assessment and Plan: Seizure precautions Treat alcohol withdrawal as above (3) Acute alcoholic hepatitis: Code(s): K70.10 - Alcoholic hepatitis without ascites Status: Acute Assessment and Plan: Serology for viral hepatitis negative Ultrasound right upper quadrant normal abstaining from alcohol Lfts slowly falling but bili down to 4.0 today (4) Thrombocytopenia: Code(s): D69.6 - Thrombocytopenia, unspecified Status: Acute Assessment and Plan: Thought secondary to alcoholic liver disease also, up to 210K today (5) Acute respiratory failure: Code(s): J96.00 - Acute respiratory failure, unspecified whether with hypoxia or hypercapnia Status: Acute Assessment and Plan: More short of breath evening 11/18 with agitation had to be intubated and mechanically ventilated.. Question whether maybe some degree of aspiration so Zosyn was added(D#6) extubated 11/20 , 94% RA today and cxr 11/21 improved. Will d/c antibiotics Subjective Date/time seen: 11/24/19 11:55 Interval history: Date of visit 11/23. 49-year-old alcoholic admitted with withdrawal out of ICU off Precedex and PRN ativan as needed for agitation and DT symptoms. became more agitated and respiratory distress Pm 11/18 had to be intubated and mechanically ventilated but able to be extubated pm 11/20. more alert today but still not at baseline and still jittery. Exam Narrative: Exam Narrative: Blood pressure 156/84 pulse 84 afebrile sat 94% 2L NC HEENT: , PERRL, sclerae icteric, NECK: No JVD, adenopathy, or thyromegaly CHEST: Clear to auscultation. Normal effort. HEART: NL S1/S2, regular, no murmur ABDOMEN: BS+, soft, nontender, no mass, no bruits EXTREMITIES: No , edema, NEUROLOGIC: sedation decreased and following simple commands.still agitated and some tremors but knows it is october and that he is in [facility] PSYCH: sedated enough that still to difficult to evaluate. Objective Data Vital Signs Vital Signs: Vital Signs - 24 hr 11/23/19 14:00 11/23/19 18:00 11/23/19 20:00 Temperature 37.0 C 37.0 C 36.3 C L Pulse Rate 101 H 105 H 103 H Respiratory Rate 19 19 18 Blood Pressure 150/83 H 142/95 H 146/87 H Pulse Oximetry 97 97 95 11/24/19 00:00 11/24/19 04:00 11/24/19 10:00 Temperature 36.5 C 37.3 C 37.6 C H Pulse Rate 112 H 96 85 Respiratory Rate 16 18 18 Blood Pressure 152/89 H 148/92 H 158/89 H Pulse Oximetry 95 96 94 Intake/Output Intake/Output: Intake & Output 11/21/19 11/22/19 11/23/19 11/24/19 23:59 23:59 23:59 23:59 Intake Total 1638.5 1570 2041 1149 Output Total 7854 862 3566 1350 Balance 138.5 456 -809 -201 Meds/Results Medications: Act
--- NOTE | 2019-11-24 14:36 | PCDIET ---
Nutrition Follow-Up Complete: Inadequate oral intake related to oral intubation as evidenced by NPO status. Patient to meet estimated nutritional needs. Goal:Progressing towards goal. Pt current nutrition is Full Liquids Nutrition recommendation: Agree Last recorded weight is 117.8 kg. Bowel Motility:Bowel Sounds normal Labs Reviewed:Alk Phos 225, AST/ALT 171/155, Bilirubin 4.0, Glucose 128 Meds Noted:Thiamin, MTV, Folic Acid, Zofran Additional Notes: Pt eating approximately 50% of meals. Wt up since admit wt of 101.1kg. Pt unable to note last BM. Due to limited diet and inadequate intake we will send Enlive once daily until appetite improves. Ensure Enlive provides 350kcal, 20g of protein, and 26 essential vitamins and minerals per serving. Agree with MTV, thiamine, and Folic Acid. We will continue to monitor PO intake, wt, and labs every five days.
[2019-11-24 16:44] LABS: Glucose Point of Care 108 (65-105)
[2019-11-24 18:00] VITALS: BP 149/88; PULSE 89; RESP 16; TEMP 36.2; O2SAT 97
[2019-11-24 20:00] VITALS: BP 143/78; PULSE 82; RESP 20; TEMP 36.8; O2SAT 97
[2019-11-25] VITALS: BP 161/99; PULSE 77; RESP 18; TEMP 36.8; O2SAT 99
[2019-11-25] MEDS: LORAZEPAM INJ 2 MG/ML VIAL IV PUSH ×2 (02:07→05:08)
[2019-11-25 03:06] LABS: Glucose Point of Care 92 (65-105)
[2019-11-25 04:00] VITALS: BP 140/97; PULSE 101; RESP 18; TEMP 36.8; O2SAT 96
[2019-11-25] MEDS: CHLORDIAZEPOXIDE 25 MG CAPSULE 50 MG PO (05:10)
[2019-11-25 05:30] LABS: Glucose Point of Care 102 (65-105)
[2019-11-25 06:28] LABS: Alanine Aminotransferase 164 U/L (4-50); Albumin Level 3.9 g/dL (3.5-5.1); Alkaline Phosphatase 214 U/L (38-126); Aspartate Amino Transferase 186 U/L (17-59); Bilirubin,Total 3.1 mg/dL (0.2-1.3); Blood Urea Nitrogen 3 mg/dL (9-20); Calcium 9.4 mg/dL (8.4-10.2); Carbon Dioxide 23 mmol/L (22-30); Chloride 109 mmol/L (98-107); Estimated CRCL calculation 176 ml/min; Estimated Glomerular Filt Rate > 60; Glucose 109 mg/dL (75-110); Potassium 3.7 mmol/L (3.4-5.0); Sodium 140 mmol/L (137-145)
--- NOTE | 2019-11-25 07:20 | WPDGIPROGNO ---
Progress Note: A&P Additional Plan Patient is somnolent this morning. Appears to be tolerating diet. He denies abdominal pain. Physical exam reveals him to be alert. Arousable. He Has mild icterus. Lungs are clear. Heart without murmur. Abdomen bowel sounds are present soft nontender with no organomegaly. Labs reveal WBC 4.9, hemoglobin 11.9, hematocrit 35.7, MCV 105. Platelets 210 K. Now normal. Total bilirubin 3.1, AST 186, ALT 164, alk-phos 214. Impression 1. Alcohol abuse. 2. Status post alcohol withdrawal syndrome. 3. Alcoholic liver disease. Appears to have acute alcoholic hepatitis. LFTs are slowly improving. Plan to allow diet. Will recheck serum ammonia level given his somnolence this morning. Will fractionate bilirubin. Continue to monitor LFTs after discharge. Alcohol rehab strongly encourage. Subjective Date/time seen: 11/25/19 07:20 Objective Data Vital Signs Vital Signs: Vital Signs - 24 hr 11/24/19 10:00 11/24/19 18:00 11/24/19 20:00 Temperature 37.6 C H 36.2 C L 36.8 C Pulse Rate 85 89 82 Respiratory Rate 18 16 20 Blood Pressure 158/89 H 149/88 H 143/78 H Pulse Oximetry 94 97 97 11/25/19 00:00 11/25/19 04:00 Temperature 36.8 C 36.8 C Pulse Rate 77 101 H Respiratory Rate 18 18 Blood Pressure 161/99 H 140/97 H Pulse Oximetry 99 96 Intake/Output Intake/Output: Intake & Output 11/22/19 11/23/19 11/24/19 11/25/19 23:59 23:59 23:59 23:59 Intake Total 1570 2041 2829 Output Total 800 2850 1500 Balance 770 -809 1329 Meds/Results Medications: Active Medications Generic Name Dose Route Start Last Admin Trade Name Freq PRN Reason Stop Dose Admin Acetaminophen 650 mg 11/20/19 09:25 11/20/19 10:19 Tylenol Tablet PO 650 mg Q6H PRN Administration Mild Pain (1-3) or Fever Chlordiazepoxide HCl 50 mg 11/23/19 12:00 11/25/19 05:10 Librium Po PO 50 mg Q6HR IRAM Administration Dextrose 12.5 gm 11/19/19 10:58 Dextrose 50% Syringe IV PUSH PRN PRN Hypoglycemia Protocol Enoxaparin Sodium 40 mg 11/21/19 09:00 11/24/19 08:48 Lovenox SUB-Q 40 mg DAILY IRAM Administration Folic Acid 1 mg 11/18/19 09:00 11/24/19 08:48 Folic Acid PO 1 mg DAILY IRAM Administration Glucagon 1 mg 11/19/19 10:58 Glucagon For Inj IM PRN PRN Hypoglycemia Protocol Glucose 15 gm 11/19/19 10:58 Glutose 15 PO PRN PRN Hypoglycemia Protocol Hydralazine HCl 20 mg 11/21/19 07:26 11/21/19 20:04 Apresoline Hcl Inj IV PUSH 20 mg Q4H PRN Administration For SBP > 160 Dextrose 1,000 mls @ 100 mls/hr 11/19/19 10:58 Dextrose 5% 1,000 Ml IVPB PRN PRN Hypoglycemia Protocol Insulin Aspart 2 - 5 units 11/19/19 12:00 11/25/19 06:32 Novolog SUB-Q Not Given Q6HR [facility] Protocol Lorazepam 2 mg 11/21/19 14:59 11/25/19 05:08 Ativan Inj IV PUSH 2 mg Q2H PRN Administration Agitation Lorazepam 2 mg 11/22/19 08:40 Ativan Inj IV PUSH Q1HR PRN seizure Multivitamins/Calcium 1 tablet 11/18/19 09:00 11/24/19 08:48 Therapeutic Multivitamins/Minerals PO 1 tablet QAM IRAM Administration Nicotine 1 patch 11/18/19 01:15 11/24/19 08:48 Nicoderm Cq 21 Mg TRANSDERM 1 patch QAM IRAM Administration Ondansetron HCl 4 mg 11/17/19 03:44 Zofran Inj IV PUSH Q4H PRN Nausea Polyethylene Glycol 17 gm 11/21/19 07:27 Miralax PO QAM PRN Constipation Thiamine HCl 100 mg 11/18/19 09:00 11/24/19 08:48 Vitamin B-1 PO 100 mg QAM IRAM Administration Radiology Results: ITS Impressions Head CT 11/17/19 07:43 IMPRESSION: Generalized volume loss of the cerebrum and cerebellum for age Nonspecific diminished attenuation cerebral white matter, likely related to chronic small vessel ischemic changes No acute intracranial finding Upper Quadrant Ultrasound 11/18/19 10:21
[2019-11-25 08:00] VITALS: BP 137/85; PULSE 100; RESP 24; TEMP 37.5; O2SAT 97
[2019-11-25] MEDS: ENOXAPARIN 40 MG/0.4 ML SYRINGE SUB-Q (08:19)
[2019-11-25] MEDS: NICOTINE (*PBKC) 21 MG PATCH 1 PATCH TRANSDERM (08:19)
[2019-11-25] MEDS: FOLIC ACID 1 MG TABLET PO (08:19)
[2019-11-25] MEDS: THERAPEUTIC MULTIVITAMINS/MINERALS TAB (*BKC) 1 TABLET PO (08:19)
[2019-11-25] MEDS: THIAMINE HCL 100 MG TABLET PO (08:20)
--- NOTE | 2019-11-25 09:44 | PM.IMPN ---
Progress Note: A&P Assessment and Plan (1) Alcohol withdrawal syndrome: Qualifiers: Complication of substance-induced condition: with unspecified complication Qualified Code(s): F10.239 - Alcohol dependence with withdrawal, unspecified Code(s): F10.239 - Alcohol dependence with withdrawal, unspecified Status: Acute Assessment and Plan: Patient with confusion and possible seizures with postictal state. He continued a downhill course requiring intubation and mechanically ventilated 11/18. Extubated 11/20 and doing well now on RA No seizures since admission Was on Librium 100mg QID but decreased to 50mg Q6H on 11/22. Patient still feels groggy but much more oriented. Continue thiamine and multivitamins Decrease Librium to 25mg Q6H today Discussed with mother by phone. She is trying to arrange inpatient rehab (2) Alcohol withdrawal seizure: Qualifiers: Complication of substance-induced condition: with unspecified complication Qualified Code(s): F10.239 - Alcohol dependence with withdrawal, unspecified; R56.9 - Unspecified convulsions Code(s): F10.239 - Alcohol dependence with withdrawal, unspecified; R56.9 - Unspecified convulsions Status: Acute Assessment and Plan: Seizure precautions Treat alcohol withdrawal as above (3) Acute alcoholic hepatitis: Code(s): K70.10 - Alcoholic hepatitis without ascites Status: Acute Assessment and Plan: Serology for viral hepatitis negative Ultrasound right upper quadrant normal [place] related to alcoholic hepatitis. Bili better but other LFTs about unchanged. (4) Thrombocytopenia: Code(s): D69.6 - Thrombocytopenia, unspecified Status: Acute Assessment and Plan: [place] secondary to alcoholic liver disease Resolved with Plt count 210K yesterday. (5) Acute respiratory failure: Code(s): J96.00 - Acute respiratory failure, unspecified whether with hypoxia or hypercapnia Status: Acute Assessment and Plan: More short of breath on evening 11/18 with agitation requiring intubation Concern for aspiration so Zosyn was added(D#6) and stopped 11/24/19 Extubated 11/20 and currently on room air Subjective Date/time seen: 11/25/19 09:44 Interval history: Date of visit 11/24. 49yo male with alcoholism here for withdrawal. Currently out of ICU off Precedex and PRN ativan as needed for agitation and DT symptoms. became more agitated and respiratory distress Pm 11/18 had to be intubated and mechanically ventilated but able to be extubated pm 11/20. Assuming care. Chart reviewed. He feels well today. Denies n/v. Denies CP or palpitations. No shortness of breath or cough. Slept well last night. Complains of feeling drugged and is requesting the Librium dose be decreased. Exam Narrative: Exam Narrative: AF 98.2 140/97 101 96% ra Gen - NARD lying semi-recumbent in bed Chest - CTA bilat, nml RR CV - RRR S1/S2 Abd - soft, NT/ND, +BS Ext - no pedal edema, 2+ PT Neuro - awake, mildly somnolent, no focal weakness; AOx3 (excpet location; he thinks he is at home) Psych - pleasant and cooperative Skin - warm and dry Objective Data Vital Signs Vital Signs: Vital Signs - 24 hr 11/24/19 10:00 11/24/19 18:00 11/24/19 20:00 Temperature 99.7 F H 97.1 F L 98.3 F Pulse Rate 85 89 82 Respiratory Rate 18 16 20 Blood Pressure 158/89 H 149/88 H 143/78 H Pulse Oximetry 94 97 97 11/25/19 00:00 11/25/19 04:00 Temperature 98.3 F 98.2 F Pulse Rate 77 101 H Respiratory Rate 18 18 Blood Pressure 161/99 H 140/97 H Pulse Oximetry 99 96 Intake/Output Intake/Output: Intake & Output 11/22/19 11/23/19 11/24/19 11/25/19 23:59 23:59 23:59 23:59 Intake Total 1570 2041 2829 400 Output Total 800 2850 1500 300 Balance 770 -809 1329 100 Meds/Results Medications: Active Medications Generic Name Dose Route Start Last Admin Trade Name Freq PRN Reason Stop
[2019-11-25 09:50] LABS: Ammonia 17 umol/L (9-30); Bilirubin Direct 0.2 mg/dL (0-0.3); Bilirubin Indirect 1.1 mg/dL (0-1.1); Bilirubin,Total 3.5 mg/dL (0.2-1.3)
[2019-11-25] MEDS: CHLORDIAZEPOXIDE 25 MG CAPSULE PO ×2 (11:55→17:53)
[2019-11-25 12:00] LABS: Glucose Point of Care 115 (65-105)
[2019-11-25 14:00] VITALS: BP 120/70; PULSE 92; RESP 20; TEMP 36.6; O2SAT 95
[2019-11-25 18:00] VITALS: BP 140/92; PULSE 92; RESP 18; TEMP 36.9; O2SAT 97
[2019-11-25 18:27] LABS: Glucose Point of Care 105 (65-105)
[2019-11-25 19:52] VITALS: BP 127/86; PULSE 91; RESP 18; TEMP 36.9; O2SAT 97
[2019-11-26] VITALS (8 sets, daily range): BP systolic 117–133; BP diastolic 69–88; PULSE 74–105; RESP 16–18; TEMP 36.1–36.8; O2SAT 92–97
[2019-11-26] MEDS: CHLORDIAZEPOXIDE 25 MG CAPSULE PO ×4 (00:09→21:36)
[2019-11-26] MEDS: THERAPEUTIC MULTIVITAMINS/MINERALS TAB (*BKC) 1 TABLET PO (08:12)
[2019-11-26] MEDS: FOLIC ACID 1 MG TABLET PO (08:12)
[2019-11-26] MEDS: NICOTINE (*PBKC) 21 MG PATCH 1 PATCH TRANSDERM (08:12)
[2019-11-26] MEDS: ENOXAPARIN 40 MG/0.4 ML SYRINGE SUB-Q (08:12)
[2019-11-26] MEDS: THIAMINE HCL 100 MG TABLET PO (08:12)
[2019-11-26 08:55] LABS: Potassium 3.4 mmol/L (3.4-5.0)
[2019-11-26 09:01] LABS: Alanine Aminotransferase 178 U/L (4-50); Albumin Level 4.1 g/dL (3.5-5.1); Alkaline Phosphatase 228 U/L (38-126); Aspartate Amino Transferase 196 U/L (17-59); Bilirubin,Total 2.9 mg/dL (0.2-1.3); Blood Urea Nitrogen 9 mg/dL (9-20); Calcium 9.3 mg/dL (8.4-10.2); Carbon Dioxide 24 mmol/L (22-30); Chloride 107 mmol/L (98-107); Estimated CRCL calculation 131 ml/min; Estimated Glomerular Filt Rate > 60; Glucose 93 mg/dL (75-110); Sodium 140 mmol/L (137-145)
--- NOTE | 2019-11-26 09:19 | WPDGIPROGNO ---
Progress Note: A&P Additional Plan Patient is somewhat more awake this morning compared to yesterday. Nursing staff reports patient becomes agitated. Somewhat confused. He remains on sedation intermittently. Physical exam reveals him to be arousable and alert but confused HEENT exam reveals only minimal scleral icterus. Lungs are clear to auscultation and percussion. Heart is without murmur or extra sounds. Abdominal exam bowel sounds are present soft nontender with no organomegaly. Labs reveal CBC with a hemoglobin 11.9, MCV 105 0.9. Platelets 210 K period are now normal. Total bilirubin 2.9, direct bilirubin 0.2. AST 196 ALT 178. Impression 1. Alcoholic hepatitis. LFTs remain elevated but slowly decreasing. We may want to consider low-dose steroids for this. Prednisone 20 mg p.o. daily with tapering dose may be beneficial. 2. Altered mental status. Patient recently withdrawn from alcohol. 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 Confusion could be aggravated by sedation. Suggest decreasing sedation if at all possible. Subjective Date/time seen: 11/26/19 09:19 Objective Data Vital Signs Vital Signs: Vital Signs - 24 hr 11/25/19 14:00 11/25/19 18:00 11/25/19 19:52 Temperature 36.6 C 36.9 C 36.9 C Pulse Rate 92 92 91 Pulse Rate [Monitor] Respiratory Rate 20 18 18 Blood Pressure 120/70 140/92 H 127/86 Pulse Oximetry 95 97 97 11/26/19 00:00 11/26/19 04:00 Temperature 36.8 C 36.5 C Pulse Rate 89 74 Pulse Rate [Monitor] 105 H Respiratory Rate 18 16 Blood Pressure 133/75 133/77 Pulse Oximetry 95 92 Intake/Output Intake/Output: Intake & Output 11/23/19 11/24/19 11/25/19 11/26/19 23:59 23:59 23:59 23:59 Intake Total 2041 2829 1040 300 Output Total 2850 1500 300 Balance -809 1329 740 300 Meds/Results Medications: Active Medications Generic Name Dose Route Start Last Admin Trade Name Freq PRN Reason Stop Dose Admin Acetaminophen 650 mg 11/20/19 09:25 11/20/19 10:19 Tylenol Tablet PO 650 mg Q6H PRN Administration Mild Pain (1-3) or Fever Chlordiazepoxide HCl 25 mg 11/25/19 12:00 11/26/19 05:38 Librium Po PO 25 mg Q6HR IRAM Administration Dextrose 12.5 gm 11/19/19 10:58 Dextrose 50% Syringe IV PUSH PRN PRN Hypoglycemia Protocol Enoxaparin Sodium 40 mg 11/21/19 09:00 11/26/19 08:12 Lovenox SUB-Q 40 mg DAILY IRAM Administration Folic Acid 1 mg 11/18/19 09:00 11/26/19 08:12 Folic Acid PO 1 mg DAILY IRAM Administration Glucagon 1 mg 11/19/19 10:58 Glucagon For Inj IM PRN PRN Hypoglycemia Protocol Glucose 15 gm 11/19/19 10:58 Glutose 15 PO PRN PRN Hypoglycemia Protocol Hydralazine HCl 20 mg 11/21/19 07:26 11/21/19 20:04 Apresoline Hcl Inj IV PUSH 20 mg Q4H PRN Administration For SBP > 160 Dextrose 1,000 mls @ 100 mls/hr 11/19/19 10:58 Dextrose 5% 1,000 Ml IVPB PRN PRN Hypoglycemia Protocol Lorazepam 2 mg 11/21/19 14:59 11/25/19 05:08 Ativan Inj IV PUSH 2 mg Q2H PRN Administration Agitation Lorazepam 2 mg 11/22/19 08:40 Ativan Inj IV PUSH Q1HR PRN seizure Multivitamins/Calcium 1 tablet 11/18/19 09:00 11/26/19 08:12 Therapeutic Multivitamins/Minerals PO 1 tablet QAM IRAM Administration Nicotine 1 patch 11/18/19 01:15 11/26/19 08:12 Nicoderm Cq 21 Mg TRANSDERM 1 patch QAM IRAM Administration Ondansetron HCl 4 mg 11/17/19 03:44 Zofran Inj IV PUSH Q4H PRN Nausea Polyethylene Glycol 17 gm 11/21/19 07:27 Miralax PO QAM PRN Constipation Thiamine HCl 100 mg 11/18/19 09:00 11/26/19 08:12 Vitamin B-1 PO 100 mg QAM IRAM Administration Radiology Results: ITS Impressions Head CT 11/17/19 07:43 IMPRESSION: Generalized volume loss of the cerebrum and cerebellum for age Nonspecific diminished attenuation cerebral whit
[2019-11-26] MEDS: predniSONE 20 MG TABLET PO (10:20)
[2019-11-26 10:28] LABS: Folic Acid 13.1 ng/mL (2.76->20); Vitamin B12 > 1000.0 pg/mL (239-931)
--- NOTE | 2019-11-26 12:50 | P.PNIM_ITS ---
Progress Note: A&P Assessment and Plan (1) Alcohol withdrawal syndrome: Qualifiers: Complication of substance-induced condition: with unspecified complication Qualified Code(s): F10.239 - Alcohol dependence with withdrawal, unspecified Code(s): F10.239 - Alcohol dependence with withdrawal, unspecified Status: Acute Assessment and Plan: * Patient with confusion and possible seizures with postictal state. He continued a downhill course requiring intubation and mechanically ventilated 11/18. Extubated 11/20 and doing well now on RA * No seizures since admission * Was on Librium 100mg QID but decreased to 50mg Q6H on 11/22 and to 25mg Q6h on 11/24. * Patient much more oriented with Librium wean. * Continue thiamine and multivitamins * Decrease Librium to 25mg Q8H today with last dose before bed * Discussed with mother by phone. Patient may need SNF before he can go to alc rehab (2) Alcohol withdrawal seizure: Qualifiers: Complication of substance-induced condition: with unspecified compli cation Qualified Code(s): F10.239 - Alcohol dependence with withdrawal, unspecified; R56.9 - Unspecified convulsions Code(s): F10.239 - Alcohol dependence with withdrawal, unspecified; R56.9 - Unspecified convulsions Status: Acute Assessment and Plan: * Seizure precautions * Treat alcohol withdrawal as above (3) Acute alcoholic hepatitis: Code(s): K70.10 - Alcoholic hepatitis without ascites Status: Acute Assessment and Plan: * Serology for viral hepatitis negative * Ultrasound right upper quadrant normal * [place] related to alcoholic hepatitis. * Bili continues to inprove but AST/ALT worse today. * Prednisone taper added by GI * Continue to monitor liver function (4) Thrombocytopenia: Code(s): D69.6 - Thrombocytopenia, unspecified Status: Acute Assessment and Plan: * [place] secondary to alcoholic liver disease * Resolved with Plt count 210K on. (5) Acute respiratory failure: Code(s): J96.00 - Acute respiratory failure, unspecified whether with hypoxia or hypercapnia Status: Acute Assessment and Plan: * More short of breath on evening 11/18 with agitation requiring intubation * Concern for aspiration so Zosyn was added and stopped 11/24/19 after 6 days * Extubated 11/20 and currently on room air Subjective Date/time seen: 11/26/19 12:50 Interval history: 49yo male with alcoholism here for withdrawal. Became more agitated and respiratory distress 11/18 requiring intubated; able to be extubated 11/20. Patient feels much better today. He feels less sedated. He is eating well. Not walking much but up to the chair. Able to have shower today. No CP, SOB, cough or n/v. Exam Narrative: Exam Narrative: AF 97.1 133/83 102 18 97% ra Gen - NARD sitting up in bed Chest - CTA bilat, nml RR CV - RRR S1/S2 Abd - soft, NT/ND, +BS Ext - no pedal edema Neuro - AOx4; mildly slow mentation Psych - more animated Skin - warm and dry Objective Data Vital Signs Vital Signs: Vital Signs - 24 hr 11/25/19 14:00 11/25/19 18:00 11/25/19 19:52 Temperature 97.8 F 98.5 F 98.4 F Pulse Rate 92 92 91 Pulse Rate [Monitor] Respiratory Rate 20 18 18 Blood Pressure 120/70 140/92 H 127/86 Pulse Oximetry 95 97 97 11/26/19 00:00 11/26/19 04:00 11/26/19 10:00
--- NOTE | 2019-11-26 12:50 | PM.IMPN ---
Progress Note: A&P Assessment and Plan (1) Alcohol withdrawal syndrome: Qualifiers: Complication of substance-induced condition: with unspecified complication Qualified Code(s): F10.239 - Alcohol dependence with withdrawal, unspecified Code(s): F10.239 - Alcohol dependence with withdrawal, unspecified Status: Acute Assessment and Plan: Patient with confusion and possible seizures with postictal state. He continued a downhill course requiring intubation and mechanically ventilated 11/18. Extubated 11/20 and doing well now on RA No seizures since admission Was on Librium 100mg QID but decreased to 50mg Q6H on 11/22 and to 25mg Q6h on 11/24. Patient much more oriented with Librium wean. Continue thiamine and multivitamins Decrease Librium to 25mg Q8H today with last dose before bed Discussed with mother by phone. Patient may need SNF before he can go to alc rehab (2) Alcohol withdrawal seizure: Qualifiers: Complication of substance-induced condition: with unspecified complication Qualified Code(s): F10.239 - Alcohol dependence with withdrawal, unspecified; R56.9 - Unspecified convulsions Code(s): F10.239 - Alcohol dependence with withdrawal, unspecified; R56.9 - Unspecified convulsions Status: Acute Assessment and Plan: Seizure precautions Treat alcohol withdrawal as above (3) Acute alcoholic hepatitis: Code(s): K70.10 - Alcoholic hepatitis without ascites Status: Acute Assessment and Plan: Serology for viral hepatitis negative Ultrasound right upper quadrant normal [place] related to alcoholic hepatitis. Bili continues to inprove but AST/ALT worse today. Prednisone taper added by GI Continue to monitor liver function (4) Thrombocytopenia: Code(s): D69.6 - Thrombocytopenia, unspecified Status: Acute Assessment and Plan: [place] secondary to alcoholic liver disease Resolved with Plt count 210K on. (5) Acute respiratory failure: Code(s): J96.00 - Acute respiratory failure, unspecified whether with hypoxia or hypercapnia Status: Acute Assessment and Plan: More short of breath on evening 11/18 with agitation requiring intubation Concern for aspiration so Zosyn was added and stopped 11/24/19 after 6 days Extubated 11/20 and currently on room air Subjective Date/time seen: 11/26/19 12:50 Interval history: 49yo male with alcoholism here for withdrawal. Became more agitated and respiratory distress 11/18 requiring intubated; able to be extubated 11/20. Patient feels much better today. He feels less sedated. He is eating well. Not walking much but up to the chair. Able to have shower today. No CP, SOB, cough or n/v. Exam Narrative: Exam Narrative: AF 97.1 133/83 102 18 97% ra Gen - NARD sitting up in bed Chest - CTA bilat, nml RR CV - RRR S1/S2 Abd - soft, NT/ND, +BS Ext - no pedal edema Neuro - AOx4; mildly slow mentation Psych - more animated Skin - warm and dry Objective Data Vital Signs Vital Signs: Vital Signs - 24 hr 11/25/19 14:00 11/25/19 18:00 11/25/19 19:52 Temperature 97.8 F 98.5 F 98.4 F Pulse Rate 92 92 91 Pulse Rate [Monitor] Respiratory Rate 20 18 18 Blood Pressure 120/70 140/92 H 127/86 Pulse Oximetry 95 97 97 11/26/19 00:00 11/26/19 04:00 11/26/19 10:00 Temperature 98.2 F 97.7 F 97.1 F L Pulse Rate 89 74 102 H Pulse Rate [Monitor] 105 H Respiratory Rate 18 16 18 Blood Pressure 133/75 133/77 133/83 Pulse Oximetry 95 92 97 11/26/19 12:00 Temperature Pulse Rate Pulse Rate [Monitor] 102 H Respiratory Rate Blood Pressure 133/83 Pulse Oximetry Intake/Output Intake/Output: Intake & Output 11/23/19 11/24/19 11/25/19 11/26/19 23:59 23:59 23:59 23:59 Intake Total 2041 2829 1040 540 Output Total 2850 1500 300 Balance -809 1329 740 540 Meds/Results Medications: Active Medications Generic Name Dose Route Sta
[2019-11-27] VITALS (8 sets, daily range): BP systolic 113–139; BP diastolic 66–90; PULSE 67–94; RESP 16–20; TEMP 36.1–36.4; O2SAT 94–99
[2019-11-27] MEDS: CHLORDIAZEPOXIDE 25 MG CAPSULE PO ×3 (04:54→21:48)
[2019-11-27 05:17] LABS: Hematocrit 40.3 % (42.0-52.0); Hemoglobin 13.1 g/dL (14.0-18.0); Mean Corpuscular HGB Conc 32.5 g/dl (32-36); Mean Corpuscular Hemoglobin 34.2 pg (26-34); Mean Corpuscular Volume 105.2 fl (80-100); Mean Platelet Volume 10.6 fl (7.4-10.4); Platelet Count Result 298 k/mm3 (150-375); Red Blood Count 3.83 M/mm3 (4.6-6.20); Red Cell Distribution Width 15.4 % (11.5-14.5); White Blood Count 6.4 K/mm3 (4.5-10.0)
[2019-11-27 05:28] LABS: Alanine Aminotransferase 181 U/L (4-50); Alkaline Phosphatase 223 U/L (38-126); Aspartate Amino Transferase 198 U/L (17-59); Bilirubin,Total 2.5 mg/dL (0.2-1.3); Blood Urea Nitrogen 12 mg/dL (9-20); Calcium 9.2 mg/dL (8.4-10.2); Carbon Dioxide 26 mmol/L (22-30); Chloride 106 mmol/L (98-107); Estimated CRCL calculation 131 ml/min; Estimated Glomerular Filt Rate > 60; Glucose 86 mg/dL (75-110); Potassium 3.4 mmol/L (3.4-5.0); Sodium 140 mmol/L (137-145)
[2019-11-27 07:57] LABS: Glucose Point of Care 80 (65-105)
[2019-11-27] MEDS: FOLIC ACID 1 MG TABLET PO (08:34)
[2019-11-27] MEDS: NICOTINE (*PBKC) 21 MG PATCH 1 PATCH TRANSDERM (08:34)
[2019-11-27] MEDS: THERAPEUTIC MULTIVITAMINS/MINERALS TAB (*BKC) 1 TABLET PO (08:34)
[2019-11-27] MEDS: ENOXAPARIN 40 MG/0.4 ML SYRINGE SUB-Q (08:34)
[2019-11-27] MEDS: THIAMINE HCL 100 MG TABLET PO (08:34)
[2019-11-27] MEDS: predniSONE 20 MG TABLET PO (08:34)
--- NOTE | 2019-11-27 08:55 | WPDGIPROGNO ---
Progress Note: A&P Additional Plan Patient much more alert this morning. Tolerating diet. he denies abdominal pain. Physical exam reveals Vital Signs to be stable. Patient is somewhat jittery. HEENT exam reveals minimal icterus. Lungs are clear. Abdomen is soft and nontender. Labs reveal total bilirubin 2.5, direct bilirubin 0.2, AST 198, ALT 181, alk-phos 223. Hemoglobin 13, MCV 105. Impression 1. Alcohol withdrawal. Patient still somewhat jittery. Agree with discontinuing sedation at this time.Mental status is improved. With cessation of sedation. 2. Alcoholic hepatitis. Patient now on oral prednisone. Continue monitor LFTs. Would taper off prednisone over the next several weeks. Subjective Date/time seen: 11/27/19 08:55 Objective Data Vital Signs Vital Signs: Vital Signs - 24 hr 11/26/19 10:00 11/26/19 12:00 11/26/19 14:00 Temperature 36.2 C L 36.4 C Pulse Rate 102 H 80 Pulse Rate [Monitor] 102 H Respiratory Rate 18 16 Blood Pressure 133/83 133/83 129/78 Pulse Oximetry 97 97 11/26/19 16:06 11/26/19 18:00 11/26/19 22:00 Temperature 36.4 C L 36.1 C L Pulse Rate 90 82 Pulse Rate [Monitor] 80 Respiratory Rate 18 16 Blood Pressure 128/88 117/69 Pulse Oximetry 95 94 11/27/19 02:00 11/27/19 06:00 Temperature 36.4 C 36.4 C Pulse Rate 76 68 Pulse Rate [Monitor] Respiratory Rate 20 20 Blood Pressure 132/78 139/90 Pulse Oximetry 99 99 Intake/Output Intake/Output: Intake & Output 11/24/19 11/25/19 11/26/19 11/27/19 23:59 23:59 23:59 23:59 Intake Total 2829 1040 1670 710 Output Total 1500 300 500 Balance 2966 787 9335 210 Meds/Results Medications: Active Medications Generic Name Dose Route Start Last Admin Trade Name Freq PRN Reason Stop Dose Admin Acetaminophen 650 mg 11/20/19 09:25 11/20/19 10:19 Tylenol Tablet PO 650 mg Q6H PRN Administration Mild Pain (1-3) or Fever Chlordiazepoxide HCl 25 mg 11/26/19 21:00 11/27/19 04:54 Librium Po PO 25 mg Q8H IRAM Administration Dextrose 12.5 gm 11/19/19 10:58 Dextrose 50% Syringe IV PUSH PRN PRN Hypoglycemia Protocol Enoxaparin Sodium 40 mg 11/21/19 09:00 11/27/19 08:34 Lovenox SUB-Q 40 mg DAILY IRAM Administration Folic Acid 1 mg 11/18/19 09:00 11/27/19 08:34 Folic Acid PO 1 mg DAILY IRAM Administration Glucagon 1 mg 11/19/19 10:58 Glucagon For Inj IM PRN PRN Hypoglycemia Protocol Glucose 15 gm 11/19/19 10:58 Glutose 15 PO PRN PRN Hypoglycemia Protocol Hydralazine HCl 20 mg 11/21/19 07:26 11/21/19 20:04 Apresoline Hcl Inj IV PUSH 20 mg Q4H PRN Administration For SBP > 160 Dextrose 1,000 mls @ 100 mls/hr 11/19/19 10:58 Dextrose 5% 1,000 Ml IVPB PRN PRN Hypoglycemia Protocol Lorazepam 2 mg 11/21/19 14:59 11/25/19 05:08 Ativan Inj IV PUSH 2 mg Q2H PRN Administration Agitation Lorazepam 2 mg 11/22/19 08:40 Ativan Inj IV PUSH Q1HR PRN seizure Multivitamins/Calcium 1 tablet 11/18/19 09:00 11/27/19 08:34 Therapeutic Multivitamins/Minerals PO 1 tablet QAM IRAM Administration Nicotine 1 patch 11/18/19 01:15 11/27/19 08:34 Nicoderm Cq 21 Mg TRANSDERM 1 patch QAM IRAM Administration Ondansetron HCl 4 mg 11/17/19 03:44 Zofran Inj IV PUSH Q4H PRN Nausea Polyethylene Glycol 17 gm 11/21/19 07:27 Miralax PO QAM PRN Constipation Prednisone 20 mg 11/26/19 08:00 11/27/19 08:34 Prednisone PO 20 mg DAILY@0800 IRAM Administration Thiamine HCl 100 mg 11/18/19 09:00 11/27/19 08:34 Vitamin B-1 PO 100 mg QAM IRAM Administration Radiology Results: ITS Impressions Head CT 11/17/19 07:43 IMPRESSION: Generalized volume loss of the cerebrum and cerebellum for age Nonspecific diminished attenuation cerebral white matter, likely related to chronic small vessel ische
--- NOTE | 2019-11-27 09:14 | P.PNIM_ITS ---
Progress Note: A&P Assessment and Plan (1) Alcohol withdrawal syndrome: Qualifiers: Complication of substance-induced condition: with unspecified complication Qualified Code(s): F10.239 - Alcohol dependence with withdrawal, unspecified Code(s): F10.239 - Alcohol dependence with withdrawal, unspecified Status: Acute Assessment and Plan: * Patient with confusion and possible seizures with postictal state. He continued a downhill course requiring intubation and mechanically ventilated 11/18. Extubated 11/20 and doing well now on RA * No seizures since admission * Was on Librium 100mg QID but decreased to 50mg Q6H on 11/22, 25mg Q6h on 11/24 and to Q8hr on 11/25. * Patient much more oriented with Librium wean. * Continue thiamine and multivitamins * No change in Librium dose today but continue to wean off as tolerated. * Patient may need SNF before he can go to alc rehab (2) Alcohol withdrawal seizure: Qualifiers: Complication of substance-induced condition: with unspecified complication Qualified Code(s): F10.239 - Alcohol dependence with withdrawal, unspecified; R56.9 - Unspecified convulsions Code(s): F10.239 - Alcohol dependence with withdrawal, unspecified; R56.9 - Unspecified convulsions Status: Acute Assessment and Plan: * Seizure precautions * Treat alcohol withdrawal as above (3) Acute alcoholic hepatitis: Code(s): K70.10 - Alcoholic hepatitis without ascites Status: Acute Assessment and Plan: * Serology for viral hepatitis negative * Ultrasound right upper quadrant normal * [place] related to alcoholic hepatitis. * Bili continues to improve to 2.5 todat; AST/ALT without improvement today. * Prednisone taper added by GI on 11/25 * Continue to monitor liver function (4) Thrombocytopenia: Code(s): D69.6 - Thrombocytopenia, unspecified Status: Acute Assessment and Plan: * [place] secondary to alcoholic liver disease * Resolved with Plt count remaining normal (5) Acute respiratory failure: Code(s): J96.00 - Acute respiratory failure, unspecified whether with hypoxia or hypercapnia Status: Acute Assessment and Plan: * More short of breath on evening 11/18 with agitation requiring intubation * Concern for aspiration so Zosyn was added (D#6) and stopped 11/24/19 * Extubated 11/20 and remains on room air * No exam findings to suggest concern and cough minimal; instructed RN to monitor and would consider CXR if worsening cough * Nml WBC, no fevers (6) DVT prophylaxis: Code(s): Z29.9 - Encounter for prophylactic measures, unspecified Status: Acute Assessment and Plan: [place] Subjective Date/time seen: 11/27/19 09:14 Interval history: 49yo male with alcoholism here for withdrawal. Became more agitated with respiratory distress 11/18 requiring intubated; able to be extubated 11/20. Patietn feels well today. Complains of dry cough that wakes him up. Up walking with walker in [place]. Eating okay. No CP or SOB. No n/v. Nml BMs. Exam Narrative: Exam Narrative: AF 97.6 139/90 68 20 99% ra Gen - NARD sitting up in bed Chest - CTA bilat, nml RR. No Cough while in the room or when patient taking deep breaths. -- RN states patient has coughed once since she has cared for patient today CV - RRR S1/S2 Abd - soft, NT/ND, +BS Ext - no pedal edema Neuro - AOx4, mildly tremulous when attempting to take a drink Psych - more animated with good eye contact Skin -
--- NOTE | 2019-11-27 09:14 | PM.IMPN ---
Progress Note: A&P Assessment and Plan (1) Alcohol withdrawal syndrome: Qualifiers: Complication of substance-induced condition: with unspecified complication Qualified Code(s): F10.239 - Alcohol dependence with withdrawal, unspecified Code(s): F10.239 - Alcohol dependence with withdrawal, unspecified Status: Acute Assessment and Plan: Patient with confusion and possible seizures with postictal state. He continued a downhill course requiring intubation and mechanically ventilated 11/18. Extubated 11/20 and doing well now on RA No seizures since admission Was on Librium 100mg QID but decreased to 50mg Q6H on 11/22, 25mg Q6h on 11/24 and to Q8hr on 11/25. Patient much more oriented with Librium wean. Continue thiamine and multivitamins No change in Librium dose today but continue to wean off as tolerated. Patient may need SNF before he can go to alc rehab (2) Alcohol withdrawal seizure: Qualifiers: Complication of substance-induced condition: with unspecified complication Qualified Code(s): F10.239 - Alcohol dependence with withdrawal, unspecified; R56.9 - Unspecified convulsions Code(s): F10.239 - Alcohol dependence with withdrawal, unspecified; R56.9 - Unspecified convulsions Status: Acute Assessment and Plan: Seizure precautions Treat alcohol withdrawal as above (3) Acute alcoholic hepatitis: Code(s): K70.10 - Alcoholic hepatitis without ascites Status: Acute Assessment and Plan: Serology for viral hepatitis negative Ultrasound right upper quadrant normal [place] related to alcoholic hepatitis. Bili continues to improve to 2.5 todat; AST/ALT without improvement today. Prednisone taper added by GI on 11/25 Continue to monitor liver function (4) Thrombocytopenia: Code(s): D69.6 - Thrombocytopenia, unspecified Status: Acute Assessment and Plan: [place] secondary to alcoholic liver disease Resolved with Plt count remaining normal (5) Acute respiratory failure: Code(s): J96.00 - Acute respiratory failure, unspecified whether with hypoxia or hypercapnia Status: Acute Assessment and Plan: More short of breath on evening 11/18 with agitation requiring intubation Concern for aspiration so Zosyn was added (D#6) and stopped 11/24/19 Extubated 11/20 and remains on room air No exam findings to suggest concern and cough minimal; instructed RN to monitor and would consider CXR if worsening cough Nml WBC, no fevers (6) DVT prophylaxis: Code(s): Z29.9 - Encounter for prophylactic measures, unspecified Status: Acute Assessment and Plan: [place] Subjective Date/time seen: 11/27/19 09:14 Interval history: 49yo male with alcoholism here for withdrawal. Became more agitated with respiratory distress 11/18 requiring intubated; able to be extubated 11/20. Patietn feels well today. Complains of dry cough that wakes him up. Up walking with walker in [place]. Eating okay. No CP or SOB. No n/v. Nml BMs. Exam Narrative: Exam Narrative: AF 97.6 139/90 68 20 99% ra Gen - NARD sitting up in bed Chest - CTA bilat, nml RR. No Cough while in the room or when patient taking deep breaths. -- RN states patient has coughed once since she has cared for patient today CV - RRR S1/S2 Abd - soft, NT/ND, +BS Ext - no pedal edema Neuro - AOx4, mildly tremulous when attempting to take a drink Psych - more animated with good eye contact Skin - warm and dry Objective Data Vital Signs Vital Signs: Vital Signs - 24 hr 11/26/19 10:00 11/26/19 12:00 11/26/19 14:00 Temperature 97.1 F L 97.6 F Pulse Rate 102 H 80 Pulse Rate [Monitor] 102 H Respiratory Rate 18 16 Blood Pressure 133/83 133/83 129/78 Pulse Oximetry 97 97 11/26/19 16:06 11/26/19 18:00 11/26/19 22:00 Temperature 97.5 F L 97.0 F L Pulse Rate 90 82 Pulse Rate [Monitor] 80 Respiratory Rate 18 16 Blood P
[2019-11-28 02:00] VITALS: BP 125/78; PULSE 55; RESP 18; TEMP 36.3; O2SAT 96
[2019-11-28 03:44] VITALS: PULSE 55
[2019-11-28] MEDS: CHLORDIAZEPOXIDE 25 MG CAPSULE PO (05:00)
[2019-11-28 05:29] LABS: Alanine Aminotransferase 171 U/L (4-50); Albumin Level 3.8 g/dL (3.5-5.1); Alkaline Phosphatase 197 U/L (38-126); Aspartate Amino Transferase 182 U/L (17-59)
[2019-11-28 06:00] VITALS: BP 120/70; PULSE 64; RESP 18; TEMP 36.7; O2SAT 97
[2019-11-28] MEDS: THIAMINE HCL 100 MG TABLET PO (08:38)
[2019-11-28] MEDS: ENOXAPARIN 40 MG/0.4 ML SYRINGE SUB-Q (08:38)
[2019-11-28] MEDS: FOLIC ACID 1 MG TABLET PO (08:38)
[2019-11-28] MEDS: NICOTINE (*PBKC) 21 MG PATCH 1 PATCH TRANSDERM (08:38)
[2019-11-28] MEDS: THERAPEUTIC MULTIVITAMINS/MINERALS TAB (*BKC) 1 TABLET PO (08:38)
[2019-11-28] MEDS: predniSONE 20 MG TABLET PO (08:39)
--- NOTE | 2019-11-28 09:23 | WPDGIPROGNO ---
Progress Note: A&P Additional Plan Patient much more alert this morning. Sitting upright in bed. Tolerating diet with no difficulties. Patient reports significant weakness. Some difficulty ambulating. Currently using a walker with assistance. Physical exam reveals to be alert. Afebrile. No significant icterus appreciated. Lungs are clear. Heart without murmur. Abdomen is soft and nontender. Bowel sounds are present normoactive Impression 1. Alcohol abuse. Patient now status post alcohol withdrawal syndromes. Alcohol rehab strongly encourage. 2. Alcohol-induced hepatitis. Marked elevation of liver function tests noted. Patient now on prednisone tapering dose advise shortly after discharge. Hopefully this will only be required for several weeks 3. Weakness. Likely because of bed rest status for extended course. Alcoholic neuropathy not excluded. Patient may need some rehabilitation before returning to independent living. Subjective Date/time seen: 11/28/19 09:23 Objective Data Vital Signs Vital Signs: Vital Signs - 24 hr 11/27/19 10:26 11/27/19 13:21 11/27/19 17:49 Temperature 36.4 C 36.4 C L 36.1 C L Pulse Rate 94 89 83 Pulse Rate [Monitor] Respiratory Rate 20 18 18 Blood Pressure 130/76 114/68 122/74 Pulse Oximetry 96 94 97 11/27/19 21:57 11/27/19 22:00 11/27/19 23:24 Temperature 36.3 C L Pulse Rate 67 Pulse Rate [Monitor] 80 80 Respiratory Rate 16 Blood Pressure 113/66 Pulse Oximetry 94 11/28/19 02:00 11/28/19 03:44 11/28/19 06:00 Temperature 36.3 C L 36.7 C Pulse Rate 55 L 64 Pulse Rate [Monitor] 55 L Respiratory Rate 18 18 Blood Pressure 125/78 120/70 Pulse Oximetry 96 97 Intake/Output Intake/Output: Intake & Output 11/25/19 11/26/19 11/27/19 11/28/19 23:59 23:59 23:59 23:59 Intake Total 1040 1670 1610 670 Output Total 300 500 700 Balance 740 1670 1110 -30 Meds/Results Medications: Active Medications Generic Name Dose Route Start Last Admin Trade Name Freq PRN Reason Stop Dose Admin Acetaminophen 650 mg 11/20/19 09:25 11/20/19 10:19 Tylenol Tablet PO 650 mg Q6H PRN Administration Mild Pain (1-3) or Fever Chlordiazepoxide HCl 25 mg 11/28/19 09:00 11/28/19 08:21 Librium Po PO Not Given Q12HR IRAM Dextrose 12.5 gm 11/19/19 10:58 Dextrose 50% Syringe IV PUSH PRN PRN Hypoglycemia Protocol Enoxaparin Sodium 40 mg 11/21/19 09:00 11/28/19 08:38 Lovenox SUB-Q 40 mg DAILY IRAM Administration Folic Acid 1 mg 11/18/19 09:00 11/28/19 08:38 Folic Acid PO 1 mg DAILY IRAM Administration Glucagon 1 mg 11/19/19 10:58 Glucagon For Inj IM PRN PRN Hypoglycemia Protocol Glucose 15 gm 11/19/19 10:58 Glutose 15 PO PRN PRN Hypoglycemia Protocol Hydralazine HCl 20 mg 11/21/19 07:26 11/21/19 20:04 Apresoline Hcl Inj IV PUSH 20 mg Q4H PRN Administration For SBP > 160 Dextrose 1,000 mls @ 100 mls/hr 11/19/19 10:58 Dextrose 5% 1,000 Ml IVPB PRN PRN Hypoglycemia Protocol Lorazepam 2 mg 11/21/19 14:59 11/25/19 05:08 Ativan Inj IV PUSH 2 mg Q2H PRN Administration Agitation Lorazepam 2 mg 11/22/19 08:40 Ativan Inj IV PUSH Q1HR PRN seizure Multivitamins/Calcium 1 tablet 11/18/19 09:00 11/28/19 08:38 Therapeutic Multivitamins/Minerals PO 1 tablet QAM IRAM Administration Nicotine 1 patch 11/18/19 01:15 11/28/19 08:38 Nicoderm Cq 21 Mg TRANSDERM 1 patch QAM IRAM Administration Ondansetron HCl 4 mg 11/17/19 03:44 Zofran Inj IV PUSH Q4H PRN Nausea Polyethylene Glycol 17 gm 11/21/19 07:27 Miralax PO QAM PRN Constipation Prednisone 20 mg 11/26/19 08:00 11/28/19 08:39 Prednisone PO 20 mg DAILY@0800 IRAM Administration Thiamine HCl 100 mg 11/18/19 09:00 11/28/19 08:38 Vitamin B-1 PO 100 mg QAM IRAM Administration
[2019-11-28 10:08] VITALS: BP 128/77; PULSE 98; RESP 18; TEMP 36.2; O2SAT 98
--- NOTE | 2019-11-28 11:17 | PM.DS ---
DS: Diagnosis Admitting Diagnosis Admitting Diagnosis: Alcohol dependence with withdrawal, unspecified Discharge Diagnosis (1) Alcohol withdrawal syndrome: Qualifiers: Complication of substance-induced condition: with unspecified complication Qualified Code(s): F10.239 - Alcohol dependence with withdrawal, unspecified Code(s): F10.239 - Alcohol dependence with withdrawal, unspecified Status: Acute Assessment and Plan: Patient with confusion and possible seizures with postictal state. He continued a downhill course requiring intubation and mechanically ventilated 11/18. Extubated 11/20 and doing well now on Room air No seizures since admission Was on Librium 100mg QID but decreased to 50mg Q6H on 11/22 with weaning dose every other day. Patient much more oriented with Librium wean. Treated with thiamine and multivitamins Plan for SNF placement before he can go to alcohol rehab (2) Alcohol withdrawal seizure: Qualifiers: Complication of substance-induced condition: with unspecified complication Qualified Code(s): F10.239 - Alcohol dependence with withdrawal, unspecified; R56.9 - Unspecified convulsions Code(s): F10.239 - Alcohol dependence with withdrawal, unspecified; R56.9 - Unspecified convulsions Status: Acute Assessment and Plan: Seizure precautions Treated alcohol withdrawal as above (3) Acute alcoholic hepatitis: Code(s): K70.10 - Alcoholic hepatitis without ascites Status: Acute Assessment and Plan: Serology for viral hepatitis negative Ultrasound right upper quadrant normal [place] related to alcoholic hepatitis. Bili continues to improve to 2.0 today; AST/ALT with improvement Prednisone taper added by GI on 11/25 (4) Thrombocytopenia: Code(s): D69.6 - Thrombocytopenia, unspecified Status: Acute Assessment and Plan: [place] secondary to alcoholic liver disease Resolved with Plt count remaining normal (5) Acute respiratory failure: Code(s): J96.00 - Acute respiratory failure, unspecified whether with hypoxia or hypercapnia Status: Acute Assessment and Plan: More short of breath on evening 11/18 with agitation requiring intubation Concern for aspiration so Zosyn was added (D#6) and stopped 11/24/19 Extubated 11/20 and remains on room air DS: Summary Hospital Course Reason for hospitalization: 49yo male here for alcohol withdrawal and alcohol seizures. Please see H&P for details. Hospital Course: As above Time Spent with Patient Time attestation: Total time spent providing and/or coordinating discharge services:35 minutes Time spent: Greater than 30 minutes Specific discharge activities: discussed with family Exam Narrative: Exam Narrative: Feels well. No complaints. Slept well. Eating well. Walking in halls. Gen - NARD sitting up in chair Chest - CTA bilat, nml RR. CV - RRR S1/S2 Abd - soft, NT/ND, +BS Ext - no pedal edema Neuro - AOx4, less tremulous Psych - more animated with good eye contact Skin - warm and dry DS: Data Data Completed and Pending Labs on day of discharge: Labs from last 24 hours 11/28/19 04:47 Total Bilirubin 2.0 H Direct Bilirubin 0.0 AST 182 H ALT 171 H Alkaline Phosphatase 197 H Total Protein 7.0 Albumin 3.8 Discharge Plan Discharge Attending physician on discharge: Charles Mcclure Consulting providers: Lu Ambriz ; Fritz Urban Discharging Clinician: Charles Mcclure Anticipated Discharge Date/Time: 11/28/19 Patient Disposition: SNF Activity: as tolerated Diet: low sodium Discharge Instructions: Please check CMP in 1 week and send results to Dr Urban Patient Instructions: How to Stop Smoking (DC), Abuse of Alcohol (DC), Alcohol Withdrawal (DC), Hypertension (DC) Stand Alone Forms: General Discharge Information Follow-up/Referrals: Fritz Urban
[2019-11-28 14:19] VITALS: BP 123/79; PULSE 81; RESP 18; TEMP 36.5; O2SAT 99
--- NOTE | 2019-11-28 14:29 | PCDIET ---
Nutrition Follow-Up Complete: Inadequate oral intake related to oral intubation as evidenced by NPO status. Patient to meet estimated nutritional needs. Goal:Goal met. Continue goal. Pt current nutrition is 4gm Na + Enlive Once daily. Nutrition recommendation: Agree Last recorded weight is 96 kg (wt down from admit wt of 101.1kg) Bowel Motility:11/26 BM Labs Reviewed:Hgb/Hct 13.1, 40.3, Bilirubin 2.0, AST/ALT 182/171 Meds Noted:Thiamin, Folic Acid, MTV Additional Notes: Pt d/c to SNF today. Average PO intake up to 75%. Diet appropriate. Enlive offered once daily. Recommend continuing Enlive once daily until appetite is back to normal. Agree with MTV, thiamine, and folic acid. Recommend continuing b complex and MTV. We will follow every seven days to monitor for adequate intake.
== END 2019-11-28 15:13 | DRG 775 ==
LOC: ANHED 11-17 03:44 → ANHIMU 11-17 03:53 → ANHICU 11-18 03:05 → ANH2MED 11-23 06:45
PROVIDERS: Emergency Medicine; Internal Medicine; Internal Medicine Gastroenterology; Admitting Provider Internal Medicine; Emergency Provider General Practice; Visit Provider Internal Medicine
DX: F10.231 Alcohol dependence with withdrawal delirium (principal); R56.9 Unspecified convulsions; K70.10 Alcoholic hepatitis without ascites; I10 Essential (primary) hypertension; F17.210 Nicotine dependence, cigarettes, uncomplicated; D69.6 Thrombocytopenia, unspecified; J96.00 Acute respiratory failure, unspecified whether with hypoxia or hypercapnia; G31.2 Degeneration of nervous system due to alcohol; K70.9 Alcoholic liver disease, unspecified; K56.7 Ileus, unspecified; E87.6 Hypokalemia
CPT/HCPCS: 31500; 36415; 36600; 70450; 71045; 74018; 76705; 80048; 80053; 80076; 80307; 81001; 82140; 82247; 82248; 82375; 82550; 82607; 82746; 82805; 83050; 83690; 83735; 84100; 84443; 85025; 85027; 85055; 85610; 85730; 86705; 86709; 86803; 87040; 87070; 87077; 87186; 87205; 87340; 93005; 94002; 94003; 96365; 96366; 96375; 96376; 97110; 97116; 97162; 97166; 97530; 97535; 99285; A9270; C9113; J0360; J1630; J1650; J1885; J2060; J2543; J2704; J2765; J3010; J3411; J3475; J3480; J7030; J7042; J7120; J7121; J7512